=== PATIENT | female | born 1970 | race Caucasian/White ===

== ENCOUNTER 2022-03-11 09:36 | Outpatient (CLI) | payer OTHER, SELFPAY ==
[2022-03-11 10:30] LABS: Creatinine* 0.7 mg/dL (0.5-1.5); Estimated Glomerular Filt Rate 105 ml/min
== END 2022-03-11 09:37 | disposition home or self-care (01) ==
LOC: NFLDREF 09:40
PROVIDERS: PCP Family Medicine; Visit Provider Family Medicine
DX: Z79.899 Other long term (current) drug therapy (principal); Z20.822 Contact with and (suspected) exposure to COVID-19
CPT/HCPCS: 82565

== ENCOUNTER 2022-08-16 09:23 | Emergency (ER) | payer MEDICAID, SELFPAY ==
[2022-08-16] VITALS (9 sets, daily range): BP systolic 114–182; BP diastolic 69–90; PULSE 71–115; RESP 16–20; TEMP 36.4; O2SAT 96–99; BMI 25.5
--- NOTE | 2022-08-16 | CRLHL7_ITS ---
For Patients: As a result of the Century Cures Act, medical imaging exams and procedure reports are released immediately into your electronic medical record. You may view this report before your referring provider. If you have questions, please contact your health care provider. INDICATION: Sudden vision changes. TECHNIQUE: CTA head with contrast bolus tracking and 3D MIP reconstruction. FINDINGS: There is normal opacification of the intracranial vasculature. There is no large vessel occlusion. No aneurysm is identified. IMPRESSION: Unremarkable head CTA. Please note that all CT scans at this facility use dose modulation, iterative reconstruction, and/or weight-based dosing when appropriate to reduce radiation dose to as low as reasonably achievable. Dictated by Cuate Johnson MD @ 08/16/2022 3:16:11 PM (Electronically Signed)
--- NOTE | 2022-08-16 | CRLHL7_ITS ---
For Patients: As a result of the Century Cures Act, medical imaging exams and procedure reports are released immediately into your electronic medical record. You may view this report before your referring provider. If you have questions, please contact your health care provider. INDICATION: Sudden vision changes. TECHNIQUE: CTA neck with contrast bolus tracking and 3D MIP reconstruction. FINDINGS: There is no significant carotid or vertebral artery stenosis or dissection. The soft tissues of the neck are within normal limits. The cervical spine is in normal alignment. IMPRESSION: Unremarkable neck CTA. Please note that all CT scans at this facility use dose modulation, iterative reconstruction, and/or weight-based dosing when appropriate to reduce radiation dose to as low as reasonably achievable. Dictated by Cuate Johnson MD @ 08/16/2022 3:18:21 PM (Electronically Signed)
--- NOTE | 2022-08-16 09:38 | CT_ITS ---
Patient: CORNELIO MAYO Facility:?[facility] Patient ID:?[id number] Site Patient ID:?[id number]. Site :?[id number] Study:?CT-Head STROKE PROTOCOL-08/16/2022 9:59:33 AM Ordering Physician:?UNKNOWN UNKNOWN Final Report: INDICATION: SUDDEN VISUAL CHANGES TECHNIQUE: CT head stroke protocol without contrast. COMPARISON: None. FINDINGS: CSF spaces: Within normal limits for age. Brain parenchyma and extra-axial spaces: The rodriguez-white differentiation is normal. No sign of intracranial hemorrhage, or midline shift. No extra-axial fluid collection. Ventricles are normal in size and configuration. Skull base and calvarium: The visualized paranasal sinuses and mastoid air cells demonstrate no acute or significant findings. The visualized orbits are grossly unremarkable. No skull fractures. IMPRESSION: No evidence of acute intracranial abnormality. Specifically, no evidence of acute intracranial hemorrhage. If there is further clinical concern for acute/subacute ischemia would recommend further evaluation with MRI which would be more sensitive. Please note that all CT scans at this facility use dose modulation, iterative reconstruction, and/or weight-based dosing when appropriate to reduce radiation dose to as low as reasonably achievable. Dictated by Efrain Howard MD @ 08/16/2022 10:05:07 AM ----- ADDENDUM ----- DR Bedolla received report 10:11am Dictated by Efrain Howard MD @ Aug 16 2022 10:14AM Signed by:?Efrain Howard MD @08/16/2022 10:05:07 AM (Electronic Signature)
[2022-08-16 10:02] LABS: Basophils Absolute Auto 0.04 K/uL (0.00-0.30); Basophils Percent Auto 0.7 % (0.0-3.0); Eosinophils Absolute Auto 0.07 K/uL (0.00-0.50); Eosinophils Percent Auto 1.3 % (0.0-7.0); Hematocrit 40.4 % (33.0-51.0); Hemoglobin* 14.3 gm/dL (12.0-16.0); Immature Granulocytes Abs Auto 0.01 K/uL (0.00-0.30); Immature Granulocytes Pct Auto 0.2 %; Lymphocytes Percent Auto 19.1 % (20-44); Mean Corpuscular HGB Conc 35 gm/dL (32-36); Mean Corpuscular Hemoglobin 30 pg (26-34); Mean Corpuscular Volume 84 fL (80-100); Monocytes Percent Auto 9.8 % (0.0-11.0); Neutrophils Percent Auto 68.9 % (42.0-72.0); Platelet Count* 220 K/uL (140-440); RDW Coefficient of Variation % 12.1 % (11.5-15.5); Red Blood Count 4.83 m/uL (4.00-5.20); White Blood Count* 5.51 K/uL (4.50-11.00)
[2022-08-16 10:11] LABS: Slide Review Reflex No
--- NOTE | 2022-08-16 10:28 | ED.NURSE ---
Visual acuity test performed with and without contacts. Without: unable to see anything. With: R: 20/20 L:20/30.
[2022-08-16 10:29] LABS: D Dimer Quantitative* < 0.27 ug/ml (0.00-0.50)
[2022-08-16] MEDS: 0.9 % SODIUM CHLORIDE 1000 ml 1,000 ML IV ×2 (10:30→11:51)
[2022-08-16 10:32] LABS: Chloride* 102 mmol/L (96-114); Potassium* 4.1 mmol/L (3.6-5.1); Sodium* 137 mmol/L (135-149)
[2022-08-16 10:35] LABS: Blood Urea Nitrogen* 14 mg/dL (7-30); Carbon Dioxide* 27 mmol/L (20-32); Creatinine* 0.7 mg/dL (0.5-1.5); Est. Creatinine Clearance* 77.77; Estimated Glomerular Filt Rate 104 ml/min; Glucose* 112 mg/dL (60-115)
[2022-08-16 10:36] LABS: Calcium* 9.3 mg/dL (8.4-10.6)
[2022-08-16 10:37] LABS: Ethanol* < 0.01 % (0.01-0.03); INR 0.93 (0.91-1.10); Prothrombin Time 13.1 Seconds
[2022-08-16 10:38] LABS: Partial Thromboplastin Time* 30 Seconds (23-33)
[2022-08-16 10:40] LABS: C Reactive Protein* < 0.5 mg/dL (0.5-1.0)
--- NOTE | 2022-08-16 10:41 | ED_ITS ---
HPI - Neuro Symptoms/Deficit General Date Seen: 08/16/22 Chief Complaint: Neuro Symptoms/Altered Deficit Stated Complaint: Loss of vision Time Seen by Provider: 08/16/22 09:52 Source: patient and family Mode of arrival: ambulatory Limitations: no limitations History of Present Illness HPI Narrative: Patient is a 52-year-old female who presents here with the right-sided eye issue, she was at work uncommon approximately half an hour ago noticed that she had almost like a shade being pulled down over the lateral part of her right eye she says the medial part is fine but the lateral part is blurry, she does not notice any loss of light dark, but just is not able to focus as well out of her right eye. She denies a headache associated with this any numbness tingling or weakness, no speech issues, she has no problems with walking or balance, there is no nausea vomiting, she has no history of significant headaches, migraines, or other issue she is on no anticoagulants, and did not take anything for this. Onset (ago): minute(s) (30) Timing confirmed by: family member Location: other History of same: No Severity: moderate Relieving factors: none Exacerbating factors: none Context: sudden onset On Anticoagulants: No Treatments Prior to Arrival: none Related Data Home Medications Medication Instructions Recorded Confirmed rosuvastatin 5 mg tablet 5 mg PO DAILY 02/25/22 05/25/22 Allergies Allergy/AdvReac Type Severity Reaction Status Date / Time hydrocodone Allergy Mild Unknown Verified 05/25/22 12:51 Review of Systems Status of ROS: Reports: 10 or more systems reviewed and unremarkable except as noted in History and below PFSH PFS Medical History Contusion of sternum History of essential hypertension Surgical History History of appendectomy (1990) History of bilateral ligation of fallopian tubes (2007) History of pubovaginal sling (2010) S/p bilateral carpal tunnel release (~12/2020) Status post laparoscopic cholecystectomy (2017) Family History Other Adopted person Social History Narrative: Exercise involving walking, 58856 steps daily 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 Head eyes ears nose and throat exam show equal pupils, no scleral icterus, extraocular muscles are normal, no facial droop, speech is normal, trachea normal and midline. Thyroid normal midline palpable not enlarged. Chest shows symmetrical rise bilaterally, normal auscultation with no wheezes, no increased work of breathing, no overt bruising or lesions seen, no tenderness is noted on auscultation. Heart sounds normal with no S3-S4 no murmurs clicks or gallops. Abdomen shows no obvious masses or hepatosplenomegaly, no organomegaly, bowel sounds are normal in all quadrants. No tenderness is noted also in all quadrant s. Upper and lower extremities show normal power, normal range of motion, pulses are normal, sensations normal, fine motor movements are normal, pelvis is stable to rocking. Cervical spine shows normal range of motion, and palpably not tender. Thoracic spine shows normal range of motion, and palpably not tender, lumbar spine shows no tenderness to palpation percussion and is otherwise normal range of motion. Skin shows no rashes, petechiae or eccymosis. Visual acuity is actually pretty good her eyes, please see nurse's note, she has really no vision without her contacts which are currently in. Her fundi appear normal this examiner, within the realm of it is tough to see, Const: Vital Signs, click to edit/add: Vital Signs - 24 hr 08/16/22 09:28 08/16/22 10:11 08/16/22 10:07 Temperature 97.6 F Pulse Rate [Left P ulse Oximeter] Pulse Rate [Left] 115 H 86 Respiratory Rate 20 18 Blood Pressure [Ri ght Upper Arm] 182/89 H 144/80 H 114/80 Pulse Oximetry 96 99 Oxygen Delivery Me thod Room Air Room Air Room Air 08/16/22 10:27 08/16/22 10:30 08/16/22 11:00 Temperature Pulse Rate [Left P ulse Oximeter] 82 77 Pulse Rate [Left] 77 78 Respiratory Rate Blood Pressure [Ri ght Upper Arm] 156/90 H 151/89 H 140/80 H Pulse Oximetry 98 99 Oxygen Delivery Me thod 08/16/22 11:30 08/16/22 11:56 08/16/22 13:54 Temperature Pulse Rate [Left P ulse Oximeter] 76 Pulse Rate [Left] 81 71 Respiratory Rate 16 Blood Pressure [Ri ght Upper Arm] 148/87 H 138/69 Pulse Oximetry 98 97 99 Oxygen Delivery Me thod Room Air Room Air Room Air Documenting provider has reviewed patient's vital signs: yes Course Course Hospital Course: Discussed with the patient and her partner that I think her field cut was most likely from a migraine headache as the MRI and the other testing was all negative. I think would like to her to follow up with primary care to further discussion with this, return here any signs and symptoms of worsening such as weakness in the extremities, recurrent nausea vomiting or worsening headache. Vital Signs Vital signs: Initial Vital Signs Temperature 97.6 F 08/16/22 09:28 Temperature Source Temporal Artery Scan 08/16/22 09:28 Pulse Rate 115 H 08/16/22 09:28 Respiratory Rate 20 08/16/22 09:28 Blood Pressure 182/89 H 08/16/22 09:28 Blood Pressure Mean 120 08/16/22 09:28 Blood Pressure Position Sitting 08/16/22 09:28 Pulse Oximetry 96 08/16/22 09:28 Oxygen Delivery Method 08/16/22 09:28 Vital Signs Temperature 97.6 F 08/16/22 09:28 Pulse Rate 115 H 08/16/22 09:28 Respiratory Rate 20 08/16/22 09:28 Blood Pressure 182/89 H 08/16/22 09:28 Pulse Oximetry 96 08/16/22 09:28 Oxygen Delivery Method 08/16/22 09:28 Temperature 97.6 F 08/16/22 09:28 Pulse Rate 76 08/16/22 13:54 Respiratory Rate 16 08/16/22 13:54 Blood Pressure 138/69 08/16/22 13:54 Pulse Oximetry 99 08/16/22 13:54 Oxygen Delivery Method 08/16/22 13:54 MDM - Neuro Symptoms/Deficit MDM Narrative Medical decision making narrative: During this evaluation I considered multiple diagnosis including stroke, TIA, rind, intrinsic eye issue, and other possibilities. Medical Records Attestation: I reviewed the patient's medical records. Lab Data Attestation: I reviewed the patient's lab results. Labs: Lab Results 08/16/22 08/16/22 08/16/22 Range/Units 09:40 09:40 09:40 WBC 5.51 (4.50-11.00) K/uL RBC 4.83 (4.00-5.20) m/uL Hgb 14.3 (12.0-16.0) gm/dL Hct 40.4 (33.0-51.0) % MCV 84 (80-100) fL MCH 30 (26-34) pg MCHC 35 (32-36) gm/dL RDW Coeff of [place] 12.1 (11.5-15.5) % Plt Count 220 (140-440) K/uL Neut % (Auto) 68.9 (42.0-72.0) % Lymph % (Auto) 19.1 L (20-44) % [place] % (Auto) 9.8 (0.0-11.0) % Eos % (Auto) 1.3 (0.0-7.0) % Baso % (Auto) 0.7 (0.0-3.0) % Neut # (Auto) 3.80 (1.7-7.0) K/uL Lymph # (Auto) 1.10 (0.90-2.90) K/uL [place] # (Auto) 0.50 (0.00-0.90) K/UL Eos # (Auto) 0.07 (0.00-0.50) K/uL Baso # (Auto) 0.04 (0.00-0.30) K/uL INR (0.91-1.10) APTT (23-33) Seconds D-Dimer Quant (PE/DVT) < 0.27 (0.00-0.50) ug/ml Sodium 137 (135-149) mmol/L Potassium 4.1 (3.6-5.1) mmol/L Chloride 102 (96-114) mmol/L Carbon Dioxide 27 (20-32) mmol/L BUN 14 (7-30) mg/dL Creatinine 0.7 (0.5-1.5) mg/dL Estimated Creat Clear 77.77 Estimated GFR 104 ml/min Glucose 112 (60-115) mg/dL Calcium 9.3 (8.4-10.6) mg/dL C-Reactive Protein (0.5-1.0) mg/dL Ethyl Alcohol < 0.01 L (0.01-0.03) % SARS-CoV-2 (PCR) (Negative) Influenza Type A (PCR) (Negative) Influenza Type B (PCR) (Negative) RSV (PCR) (Negative) 08/16/22 08/16/22 08/16/22 Range/Units 09:40 09:40 09:53 WBC (4.50-11.00) K/uL RBC (4.00-5.20) m/uL Hgb (12.0-16.0) gm/dL Hct (33.0-51.0) % MCV (80-100) fL MCH (26-34) pg MCHC (32-36) gm/dL RDW Coeff of [place] (11.5-15.5) % Plt Count (140-440) K/uL Neut % (Auto) (42.0-72.0) % Lymph % (Auto) (20-44) % [place] % (Auto) (0.0-11.0) % Eos % (Auto) (0.0-7.0) % Baso % (Auto) (0.0-3.0) % Neut # (Auto) (1.7-7.0) K/uL Lymph # (Auto) (0.90-2.90) K/uL [place] # (Auto) (0.00-0.90) K/UL Eos # (Auto) (0.00-0.50) K/uL Baso # (Auto) (0.00-0.30) K/uL INR 0.93 (0.91-1.10) APTT 30 (23-33) Seconds D-Dimer Quant (PE/DVT) (0.00-0.50) ug/ml Sodium (135-149) mmol/L Potassium (3.6-5.1) mmol/L Chloride (96-114) mmol/L Carbon Dioxide (20-32) mmol/L BUN (7-30) mg/dL Creatinine (0.5-1.5) mg/dL Estimated Creat Clear Estimated GFR ml/min Glucose (60-115) mg/dL Calcium (8.4-10.6) mg/dL C-Reactive Protein < 0.5 L (0.5-1.0) mg/dL Ethyl Alcohol (0.01-0.03) % SARS-CoV-2 (PCR) Negative SARS-CoV-2 (Negative) Influenza Type A (PCR) Negative PCR FLU A (Negative) Influenza Type B (PCR) Negative PCR FLU B (Negative) RSV (PCR) Negative PCR RSV (Negative) Imaging Data MRI - head: Attestation: I have reviewed the pertinent imaging results. My impression: Head CT and head CTA and neck CT are all normal, follow-up MRI did not show any acute abnormalities, read by Radiology in agreement. This is very reassuring more likely cause of her discomfort, today was right-sided migraine headache. Discharge Plan Discharge Clinical Impression: Headache, migraine, Visual field cut Patient Disposition: Home w/ Parent or Adult Condition: Stable Instructions: Migraine Headache (ED), Visual Floaters (ED) Additional Instructions: Home, rest, follow-up with optometry within the next day or 2 just to ensure that there is nothing going on with your retina, I suspect that at this is all due to a him migraine, but want to be 100% certain. Ibuprofen 800 mg also, follow-up with primary care for help with migraines. Return here if increasing signs or symptoms or any weakness or any other atypical symptoms. Prescriptions: No Action rosuvastatin 5 mg tablet 5 mg PO DAILY Follow Up/Referrals: Claudia Cruz MD [Primary Care Provider] - Stand Alone Forms: [employer] Info Instructions
[2022-08-16 10:54] LABS: PCR FLU A Negative PCR FLU A (Negative); PCR FLU B Negative PCR FLU B (Negative); PCR RSV Negative PCR RSV (Negative)
[2022-08-16] MEDS: ASPIRIN 81 MG TAB.CHEW 324 MG PO (10:55)
--- NOTE | 2022-08-16 10:55 | PC.NURSE ---
Pain in front of head and to the side after fluids administered. MD notified. Aspirin 324mg given.
[2022-08-16 11:00] LABS: SARS PCR* Negative SARS-CoV-2 (Negative)
--- NOTE | 2022-08-16 11:37 | CRLHL7_ITS ---
For Patients: As a result of the Century Cures Act, medical imaging exams and procedure reports are released immediately into your electronic medical record. You may view this report before your referring provider. If you have questions, please contact your health care provider. INDICATION: Right-sided field cut. TECHNIQUE: Multiplanar multisequence noncontrast MR images acquired through the brain. COMPARISON: CT brain 08/16/2022. FINDINGS: The ventricles and sulci are within normal limits for patient age. No mass effect or midline shift. Punctate FLAIR hyperintensity within the left frontal white matter (series 4, image 22), nonspecific. No diffusion restriction to suggest acute infarction. No intracranial hemorrhage or pathologic extra-axial fluid collection. The major arterial flow voids of the skullbase are preserved. The globes are symmetric. Mild paranasal sinus mucosal thickening. Small left mastoid effusion. IMPRESSION: 1. No acute infarction, mass effect, or intracranial hemorrhage. 2. Punctate FLAIR hyperintensity within the left frontal white matter is nonspecific, though may represent sequelae of minimal chronic microvascular ischemic change or migraine headaches. Dictated by Jayro Parekh MD @ 08/16/2022 1:37:25 PM (Electronically Signed)
[2022-08-16] MEDS: diphenhydrAMINE 50 MG/ML inj 25 MG IVP (11:50)
[2022-08-16] MEDS: METOCLOPRAMIDE HCL 10 MG in 0.9 % SODIUM CHLORIDE 100 ml 100 ML 306 MG IVPB (11:51)
[2022-08-16] MEDS: KETOROLAC 30 MG/ML inj IVP (12:13)
--- NOTE | 2022-08-16 12:38 | ED.NURSE ---
patient was up to the bathroom and then went to MRI via .
--- NOTE | 2022-08-16 13:58 | PC.NURSE ---
Patient was moved out into the lobby. okay with her to be off monitor and wait for instructions in the lobby. IV taken out and catheter intact.
== END 2022-08-16 14:07 | disposition home or self-care (01) ==
PROVIDERS: Emergency Provider Family Medicine; PCP Family Medicine
DX: G43.909 Migraine, unspecified, not intractable, without status migrainosus (principal); H53.40 Unspecified visual field defects
CPT/HCPCS: 36415; 70450; 70496; 70498; 70551; 80048; 82077; 85025; 85379; 85610; 85730; 86140; 87502; 87634; 87635; 96365; 96375; 99284; 99285; A9270; J1200; J1885; J2765; J7030; Q9967

== ENCOUNTER 2022-12-28 13:05 | Emergency (ER) | payer MEDICAID, SELFPAY ==
--- NOTE | 2015-12-29 13:06 | ED_ITS ---
HISTORY OF PRESENT ILLNESS The patient is a 52-year-old female coming in with anterolateral right chest wall pain. ?She notes on Monday she initially injured it when she was leaning over the bed of her 's pickup truck to retrieve something. ?She felt a popping sensation. ?It was sore then. ?She has been prepping her backyard for a graduation green party that is going to happen there. ?Today, she was mowing, moved some chairs, then leaned over to move a bag of mulch and had severe pain. ?She is having pain with any breathing, any movement, states she does feel short of breath. ?Denies any underlying illness or cough or cold symptoms. ?Has no personal history of cancer. ?She is adopted and does not know any family history. ?She has been using Advil and Tylenol. ?On questioning, she has significant reaction to narcotics. ?Hydrocodone has made her throw up. ?She does use oxycodone but has to use nausea medications with this. ?Only other medication is rosuvastatin. ?Denies any chronic pain issues. REVIEW OF SYSTEMS Unless noted above, negative for 6-point review of systems. ALLERGIES No known drug allergies but does have intolerance to narcotics due to nausea and vomiting. BODY AFTER ALLERGIES CURRENT MEDICATIONS Rosuvastatin, has been doing Tylenol and ibuprofen currently for active acute pain. PAST HISTORY Denies any chronic medical issues outside of hyperlipidemia. ?Does state that she has had an appendectomy and cholecystectomy. SOCIAL HISTORY Habits: ?Denies any nicotine. PHYSICAL EXAMINATION CONSTITUTIONAL: ?Patient is alert, interactive, no apparent distress. ?She is tearful, seems to be in pain with any movement. ?She is hanging onto her right anterolateral chest wall. ? VITAL SIGNS: ?She is 100% on room air on arrival, no hypoxia noted, other vitals reviewed and stable. ? HEENT: ?Crying some, but otherwise sclerae are clear, conjugate gaze, no scleral icterus. ?Symmetrical facial function, able to speak in complete sentences, no hoarseness of voice. NECK: ?Supple, no crepitus, no masses or cervical adenopathy. ? CHEST: ?Has pain with movement when I ask her to sit up, breath sounds are symmetric, equal, diminished due to poor inspiratory effort. ?No crackles or wheezing noted. ?She has the rib marker on the right anterolateral chest wall where the pain is. ?She is tender when I palpate, but there is no overlying rash, no ecchymosis, no crepitus, no step-off. CV: ?Regular rate and rhythm. ?No murmur, normal S1, S2, no S3 or S4. ABDOMEN: ?Soft, nontender, nondistended, feel no organomegaly. EMERGENCY ROOM COURSE The patient had chest x-ray with right rib views obtained. ?Discussed with her differential is occult rib fracture versus musculoskeletal issues. ?Will await reading of this. ?Unfortunately, at this time there is computer system issues and I cannot visualize her x-rays. ? Please leave this open for further dictation. DICTATION ENDS HERE HPI - General Adult General Chief complaint: Rib Pain Stated complaint: R rib pain Time Seen by Provider: 12/28/22 13:07 Related Data Home Medications Medication Instructions Recorded Confirmed rosuvastatin 5 mg tablet 5 mg PO DAILY 02/25/22 12/28/22 Previous Rx's Medication Instructions Recorded eletriptan 20 mg tablet (Relpax) 20 mg PO Q2H PRN migraine headache 10/06/22 #10 tabs ibuprofen 800 mg tablet 800 mg PO Q8H PRN pain #30 tabs 10/06/22 cyclobenzaprine 10 mg tablet 10 mg PO TID PRN muscle spasm #21 12/28/22 tabs ondansetron 4 mg disintegrating 4 mg PO Q8H PRN nausea and 12/28/22 tablet vomiting #10 tabs oxycodone 5 mg tablet 5 mg PO TID PRN pain #10 tabs 12/28/22 oxycodone 5 mg tablet 5 mg PO TID PRN pain #10 tabs 12/28/22 Allergies Allergy/AdvReac Type Severity Reaction Status Date / Time hydrocodone Allergy Mild Vomiting Verified 12/28/22 14:21 PFSH PFS Medical History History of essential hypertension Migraine with aura Surgical History History of appendectomy (1990) History of bilateral ligation of fallopian tubes (2007) History of pubovaginal sling (2010) S/p bilateral carpal tunnel release (~12/2020) Status post laparoscopic cholecystectomy (2018) Family History Adopted person Social History Narrative: Exercise involving walking, 7[address]72 steps daily 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 , [employer]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, 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 Non-smoker, quit age 25, 5 pack years Social drinker, 3-4/month Smoking Status: Former smoker Do you use any of these nicotine containing products: None Second hand tobacco smoke exposure: No How often do you have a drink containing alcohol: 2-4 times a month How many standard drinks containing alcohol do you have on a typical day: 1 or 2 How often do you have six or more drinks on one occasion: Never AUDIT-C Alcohol total score: 2 Non-prescribed substance use: denies use Little interest or pleasure in doing things: not at all Feeling down, depressed, or hopeless: not at all service: No Exam Const: Vital Signs, click to edit/add: Vital Signs - 24 hr 12/28/22 13:10 Pulse Rate [Pulse Oximeter] 97 Respiratory Rate 20 Blood Pressure [Ri ght Upper Arm] 151/95 H Pulse Oximetry 100 Oxygen Delivery Me thod Room Air Course Reevaluation(s) Time of Reevaluation #1: 15:01 Reevaluation #1: Have reviewed with her the negative findings on chest x-ray. She still understands that there can be occult rib fractures that may not be seen until healing with a callus can be seen on re-x-ray. Nonetheless, treatment is still the same with pain management, relative rest. We discussed using some oxycodone with Zofran on top of the Tylenol ibuprofen. I will write for a muscle relaxant as well. She works the next 2 days and is in significant pain, am happy to give her a note off for the next to days to rest. Did offer Toradol IM prior to discharge which she will take. Vital Signs Vital signs: Initial Vital Signs Pulse Rate 97 12/28/22 13:10 Pulse Rhythm Regular 12/28/22 13:10 Pulse Strength 3+ Normal 12/28/22 13:10 Respiratory Rate 20 12/28/22 13:10 Blood Pressure 151/95 H 12/28/22 13:10 Blood Pressure Mean 113 H 12/28/22 13:10 Blood Pressure Position Sitting 12/28/22 13:10 Pulse Oximetry 100 12/28/22 13:10 Oxygen Delivery Method Room Air 12/28/22 13:10 Vital Signs Pulse Rate 97 12/28/22 13:10 Respiratory Rate 20 12/28/22 13:10 Blood Pressure 151/95 H 12/28/22 13:10 Pulse Oximetry 100 12/28/22 13:10 Oxygen Delivery Method Room Air 12/28/22 13:10 Pulse Rate 97 12/28/22 13:10 Respiratory Rate 20 12/28/22 13:10 Blood Pressure 151/95 H 12/28/22 13:10 Pulse Oximetry 100 12/28/22 13:10 Oxygen Delivery Method Room Air 12/28/22 13:10 Medical Decision Making Imaging Data Chest x-ray: Attestation: I have reviewed the pertinent imaging results. Radiologist's impression: Patient: CORNELIO MAYO Facility:?[facility] Patient ID:?[id number] Site Patient ID:?[id number] Site :?1970 Study:?XRay Chest Right RIBS 3 VIEWS-12/28/2022 1:49:23 PM Ordering Physician:Raul Final Report: HISTORY: Right rib pain. TECHNIQUE: Frontal view the chest and 2 views of the right ribs. COMPARISON: None. FINDINGS: No airspace consolidation. No pleural effusion or pneumothorax. Pulmonary vasculature and cardiomediastinal silhouette are unremarkable. No right rib fractures. Surgical clips in the right upper quadrant of the abdomen. IMPRESSION: No right rib fractures. No cardiopulmonary abnormality. Dictated by Wallace Travis MD @ 12/28/2022 2:36:43 PM (Electronic Signature) Critical Care Time Critical Care Time Critical Care Time: No Discharge Plan Discharge Clinical Impression: Right-sided chest wall pain Patient Disposition: Home, Self-Care Condition: Stable Instructions: Chest Wall Pain (ED) Additional Instructions: Use Tylenol 1000 mg 3 times a day, supplement with ibuprofen 600mg up to 4 times a day with food as needed. Have written for muscle relaxant to be used per prescription, can be sedating in you cannot drive or operate machinery on this. Likewise, have written for a few tablets of oxycodone for severe pain, no operation of machinery or driving while on this. Oxycodone can be constipating as well as cause nausea vomiting. Have written for Zofran to take with the oxycodone. If you find you are getting constipated, can use MiraLax and or senna per package instructions. If you develop increasing pain, fevers with this or difficulty breathing or shortness of breath that is worsening, do need to be re-evaluated. Need to limit lifting in activities as mediated by your pain level. Activity Level: Activity as Tolerated Prescriptions: New oxycodone 5 mg tablet 5 mg PO TID PRN (Reason: pain) Qty: 10 0RF ondansetron 4 mg tablet,disintegrating 4 mg PO Q8H PRN (Reason: nausea and vomiting) Qty: 10 0RF cyclobenzaprine 10 mg tablet 10 mg PO TID PRN (Reason: muscle spasm) Qty: 21 0RF oxycodone 5 mg tablet 5 mg PO TID PRN (Reason: pain) Qty: 10 0RF No Action rosuvastatin 5 mg tablet 5 mg PO DAILY eletriptan [Relpax] 20 mg tablet 20 mg PO Q2H PRN (Reason: migraine headache) Qty: 10 0RF Rx Instructions: do not exceed 2 doses per 24 hrs ibuprofen 800 mg tablet 800 mg PO Q8H PRN (Reason: pain) Qty: 30 0RF Rx Instructions: 1 tab po x1 as needed for migraine Follow Up/Referrals: Claudia Cruz MD [Primary Care Provider] - Stand Alone Forms: [employer] Info Instructions Documented By: Yecenia Tipton M.D. Signed By:
--- NOTE | 2022-12-28 | XR_ITS ---
Patient: CORNELIO MAYO Facility:?[facility] Patient ID:?[id number] Site Patient ID:?[id number] Site :?1970 Study:?XRay-Chest Right RIBS 3 VIEWS-12/28/2022 1:49:23 PM Ordering Physician:Raul Final Report: HISTORY: Right rib pain. TECHNIQUE: Frontal view the chest and 2 views of the right ribs. COMPARISON: None. FINDINGS: No airspace consolidation. No pleural effusion or pneumothorax. Pulmonary vasculature and cardiomediastinal silhouette are unremarkable. No right rib fractures. Surgical clips in the right upper quadrant of the abdomen. IMPRESSION: No right rib fractures. No cardiopulmonary abnormality. Dictated by Wallace Travis MD @ 12/28/2022 2:36:43 PM Signed by:?Wallace Travis MD @12/28/2022 2:36:43 PM (Electronic Signature)
[2022-12-28 13:10] VITALS: BP 151/95; PULSE 97; RESP 20; O2SAT 100; BMI 24.0
--- NOTE | 2022-12-28 14:23 | ED.GENADULT ---
HPI - General Adult General Chief complaint: Rib Pain Stated complaint: R rib pain Time Seen by Provider: 12/28/22 13:07 Related Data Home Medications Medication Instructions Recorded Confirmed rosuvastatin 5 mg tablet 5 mg PO DAILY 02/25/22 12/28/22 Previous Rx's Medication Instructions Recorded eletriptan 20 mg tablet (Relpax) 20 mg PO Q2H PRN migraine headache 10/06/22 #10 tabs ibuprofen 800 mg tablet 800 mg PO Q8H PRN pain #30 tabs 10/06/22 cyclobenzaprine 10 mg tablet 10 mg PO TID PRN muscle spasm #21 12/28/22 tabs ondansetron 4 mg disintegrating 4 mg PO Q8H PRN nausea and 12/28/22 tablet vomiting #10 tabs oxycodone 5 mg tablet 5 mg PO TID PRN pain #10 tabs 12/28/22 oxycodone 5 mg tablet 5 mg PO TID PRN pain #10 tabs 12/28/22 Allergies Allergy/AdvReac Type Severity Reaction Status Date / Time hydrocodone Allergy Mild Vomiting Verified 12/28/22 14:21 PFSH PFSH Medical History History of essential hypertension Migraine with aura Surgical History History of appendectomy (1990) History of bilateral ligation of fallopian tubes (2007) History of pubovaginal sling (2010) S/p bilateral carpal tunnel release (~12/2020) Status post laparoscopic cholecystectomy (2017) Family History Adopted person Social History Narrative: Exercise involving walking, 9[address]16 steps daily 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 , [employer]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, 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 Non-smoker, quit age 25, 5 pack years Social drinker, 3-4/month Smoking Status: Former smoker Do you use any of these nicotine containing products: None Second hand tobacco smoke exposure: No How often do you have a drink containing alcohol: 2-4 times a month How many standard drinks containing alcohol do you have on a typical day: 1 or 2 How often do you have six or more drinks on one occasion: Never AUDIT-C Alcohol total score: 2 Non-prescribed substance use: denies use Little interest or pleasure in doing things: not at all Feeling down, depressed, or hopeless: not at all service: No Exam Const: Vital Signs, click to edit/add: Vital Signs - 24 hr 12/28/22 13:10 Pulse Rate [Pulse Oximeter] 97 Respiratory Rate 20 Blood Pressure [Ri ght Upper Arm] 151/95 H Pulse Oximetry 100 Oxygen Delivery Me thod Room Air Course Reevaluation(s) Time of Reevaluation #1: 15:01 Reevaluation #1: Have reviewed with her the negative findings on chest x-ray. She still understands that there can be occult rib fractures that may not be seen until healing with a callus can be seen on re-x-ray. Nonetheless, treatment is still the same with pain management, relative rest. We discussed using some oxycodone with Christian on top of the Tylenol ibuprofen. I will write for a muscle relaxant as well. She works the next 2 days and is in significant pain, am happy to give her a note off for the next to days to rest. Did offer Toradol IM prior to discharge which she will take. Vital Signs Vital signs: Initial Vital Signs Pulse Rate 97 12/28/22 13:10 Pulse Rhythm Regular 12/28/22 13:10 Pulse Strength 3+ Normal 12/28/22 13:10 Respiratory Rate 20 12/28/22 13:10 Blood Pressure 151/95 H 12/28/22 13:10 Blood Pressure Mean 113 H 12/28/22 13:10 Blood Pressure Position Sitting 12/28/22 13:10 Pulse Oximetry 100 12/28/22 13:10 Oxygen Delivery Method Room Air 12/28/22 13:10 Vital Signs Pulse Rate 97 12/28/22 13:10 Respiratory Rate 20 12/28/22 13:10 Blood Pressure 151/95 H 12/28/22 13:10 Pulse Oximetry 100 12/28/22 13:10 Oxygen Delivery Method Room Air 12/28/22 13:10 Pulse Rate 97 12/28/22 13:10 Respiratory Rate 20 12/28/22 13:10 Blood Pressure 151/95 H 12/28/22 13:10 Pulse Oximetry 100 12/28/22 13:10 Oxygen Delivery Method Room Air 12/28/22 13:10 Medical Decision Making Imaging Data Chest x-ray: Attestation: I have reviewed the pertinent imaging results. Radiologist's impression: Patient: CORNELIO MAYO Facility:?[facility] Patient ID:?[id number] Site Patient ID:?[id number] Site :?1970 Study:?XRay Chest Right RIBS 3 VIEWS-12/28/2022 1:49:23 PM Ordering Physician:Raul Final Report: HISTORY: Right rib pain. TECHNIQUE: Frontal view the chest and 2 views of the right ribs. COMPARISON: None. FINDINGS: No airspace consolidation. No pleural effusion or pneumothorax. Pulmonary vasculature and cardiomediastinal silhouette are unremarkable. No right rib fractures. Surgical clips in the right upper quadrant of the abdomen. IMPRESSION: No right rib fractures. No cardiopulmonary abnormality. Dictated by Wallace Travis MD @ 12/28/2022 2:36:43 PM (Electronic Signature) Critical Care Time Critical Care Time Critical Care Time: No Discharge Plan Discharge Clinical Impression: Right-sided chest wall pain Patient Disposition: Home, Self-Care Condition: Stable Instructions: Chest Wall Pain (ED) Additional Instructions: Use Tylenol 1000 mg 3 times a day, supplement with ibuprofen 600mg up to 4 times a day with food as needed. Have written for muscle relaxant to be used per prescription, can be sedating in you cannot drive or operate machinery on this. Likewise, have written for a few tablets of oxycodone for severe pain, no operation of machinery or driving while on this. Oxycodone can be constipating as well as cause nausea vomiting. Have written for Zofran to take with the oxycodone. If you find you are getting constipated, can use MiraLax and or senna per package instructions. If you develop increasing pain, fevers with this or difficulty breathing or shortness of breath that is worsening, do need to be re-evaluated. Need to limit lifting in activities as mediated by your pain level. Activity Level: Activity as Tolerated Prescriptions: New oxycodone 5 mg tablet 5 mg PO TID PRN (Reason: pain) Qty: 10 0RF ondansetron 4 mg tablet,disintegrating 4 mg PO Q8H PRN (Reason: nausea and vomiting) Qty: 10 0RF cyclobenzaprine 10 mg tablet 10 mg PO TID PRN (Reason: muscle spasm) Qty: 21 0RF oxycodone 5 mg tablet 5 mg PO TID PRN (Reason: pain) Qty: 10 0RF No Action rosuvastatin 5 mg tablet 5 mg PO DAILY eletriptan [Relpax] 20 mg tablet 20 mg PO Q2H PRN (Reason: migraine headache) Qty: 10 0RF Rx Instructions: do not exceed 2 doses per 24 hrs ibuprofen 800 mg tablet 800 mg PO Q8H PRN (Reason: pain) Qty: 30 0RF Rx Instructions: 1 tab po x1 as needed for migraine Follow Up/Referrals: Claudia Cruz MD [Primary Care Provider] - Stand Alone Forms: [facility] Info Instructions
[2022-12-28] MEDS: KETOROLAC 30 MG/ML inj IM (15:11)
--- NOTE | 2022-12-28 15:24 | ED.NURSE ---
Pt given 30mg Toradol in RIGHT deltoid IM as ordered for pain.
== END 2022-12-28 15:20 | disposition home or self-care (01) ==
PROVIDERS: Emergency Provider Family Medicine; PCP Family Medicine
DX: R07.89 Other chest pain (principal)
CPT/HCPCS: 71101; 96372; 99284; J1885

== ENCOUNTER 2023-04-27 09:46 | Outpatient (CLI) | payer MEDICAID, SELFPAY | END 2023-04-27 09:47 | disposition home or self-care (01) | PROVIDERS: PCP Family Medicine; Visit Provider Family Medicine | DX: R42 Dizziness and giddiness (principal); E78.5 Hyperlipidemia, unspecified; R53.83 Other fatigue; R19.7 Diarrhea, unspecified; R25.2 Cramp and spasm | CPT/HCPCS: 80053; 83735; 84443 ==

== ENCOUNTER 2023-08-21 06:16 | Day surgery (SDC) | payer MEDICAID, SELFPAY ==
[2023-08-21] MEDS: ETHYL CHLORIDE 1 APPLICATION 1 APPLIC TOPICAL (06:22)
[2023-08-21 06:23] VITALS: BP 150/84; PULSE 70; RESP 16; TEMP 36.9; O2SAT 98; O2SAT 99; BMI 24.6
[2023-08-21] MEDS: lidocaine HCL 2 % MULTIDOSE 20 ML VIAL INJECTION (06:55)
[2023-08-21] MEDS: BUPIVACAINE 0.5% 30 ML INJECTION (06:55)
[2023-08-21 07:16] VITALS: BP 145/71; PULSE 68; RESP 16; O2SAT 99
[2023-08-21 07:20] VITALS: BP 153/81; PULSE 71; RESP 16; O2SAT 97
[2023-08-21 07:25] VITALS: BP 147/78; PULSE 64; RESP 16; O2SAT 100
[2023-08-21 07:30] VITALS: BP 144/79; PULSE 62; RESP 16; O2SAT 98
--- NOTE | 2023-08-21 07:31 | PM.ORPRC ---
Procedure Note Date of procedure: 08/21/23 Procedure: PREOPERATIVE DIAGNOSIS: 1. Left thumb flexor tenosynovitis - trigger thumb POSTOPERATIVE DIAGNOSIS:1. Left thumb flexor tenosynovitis - trigger thumb PROCEDURE:1. Left thumb flexor tendon sheath open release (A1 rosalinda) SURGEON: Boris Morin MD. DIRECTOR OF FIRST IMPRESSIONS: [HOLLEY Cuellar] ANESTHESIA: Local anesthetic [4ml] via 50:50 mixture of [1]% Lidocaine [with epi] and [0.5]% marcaine [plain] EBL: [ 2ml ] IMPLANTS: None TOURNIQUET: [None] COMPLICATIONS: None evident INDICATIONS: The patient is a pleasant [53-year-old male female] who has experienced left thumb catching/triggering for number of months. It has progressively gotten worse. Given the failure of nonoperative management, and how this affects daily life, surgery was recommended. DESCRIPTION OF PROCEDURE: Following a thorough discussion of risks, benefits, and alternatives consent was obtained and the operative digit(s) was marked. The patient was brought to the operating room and placed supine on the operating table. Local anesthesia induction was undertaken in preop holding. No antibiotics were administered as this was planned to be a local case only. Proper time-out was performed identifying proper patient, site, and procedure. The operative extremity was prepped and draped in the appropriate sterile fashion using ChloraPrep. An incision was made on the palmar surface of the hand overlying the MCP joint region of the appropriate digit(s) respecting the palmar creases being cautious not to cross these perpendicularly. Sharp incision through the skin, and blunt dissection through subcutaneous tissue allowing protection of crossing neurologic structures. The A1 rosalinda was visualized directly. It was incised sharply with a 15 blade. It was released completely from its distal to proximal extent under direct visualization. The tendon was inspected and found to be mildly striated consistent with some friction. Otherwise, it was intact. The tendon was removed out of the wound, and further inspected. The patient was asked to manually flex and extend the digits and showed no further catching. The catching which was visualized after tourniquet inflation, was no longer evident with reproduction of a manual fist and relaxation. Closure was performed with 4-O nylon in interrupted fashion. Soft dressings were applied, and the patient was transferred to the recovery room in stable condition. PLAN: 1. Encourage elevation of the operative extremity. 2. Range of motion and icing of the fingers and hand/wrist as tolerated/needed. 3. Ibuprofen/acetaminophen and/or oxycodone as needed for pain control. 4. Follow up with PA visit in 12-16 days for wound check and suture removal.
[2023-08-21] MEDS: NEOMYCIN/BACITRACIN/POLYMYXIN B 1 APPLIC TOPICAL (07:35)
[2023-08-21 07:40] VITALS: BP 148/95; PULSE 74; RESP 16; TEMP 36.8; O2SAT 100
== END 2023-08-21 07:51 | disposition home or self-care (01) ==
PROVIDERS: PCP Family Medicine; Visit Provider Orthopaedic Surgery Sports Medicine
PROC: (CPT 26055; principal; 2023-08-21 07:15)
DX: M65.312 Trigger thumb, left thumb (principal); M65.842 Other synovitis and tenosynovitis, left hand
CPT/HCPCS: 26055; J0665

== ENCOUNTER 2023-09-22 06:50 | Emergency (ER) | payer MEDICAID, SELFPAY ==
[2023-09-22 06:55] VITALS: BP 181/99; PULSE 115; RESP 20; TEMP 36.7; O2SAT 99; BMI 24.8
--- NOTE | 2023-09-22 07:07 | ED.GENADULT ---
HPI - General Adult General Chief complaint: Epistaxis/Nosebleed Stated complaint: Nose bleed 1 hour Time Seen by Provider: 09/22/23 06:57 Source: patient Mode of arrival: ambulatory Limitations: no limitations History of Present Illness HPI narrative: 53-year-old female presents the emergency department with a 1 hour history of nose bleed from the left nostril. No trauma or injury. Does not use anticoagulants. No headache or fever. Has not been using NSAIDs or aspirin. No history DVT or PE. Feels little nauseated but no other systemic symptoms. Has not tried applying pressure but rather just blunting at the nose, did unfortunately has not stopped bleeding. She does not work and a very cold or dry environment, no prior history of significant nosebleeds. Did not try any other interventions prior to coming to ED. Past medical history notable for migraines, no long-term medicines. Allergy to hydrocodone which only caused vomiting. ROS notable for the HEENT symptoms as above only. Negative for generalized, hematologic, skin and GI changes. Related Data Home Medications Medication Instructions Recorded Confirmed rosuvastatin 5 mg tablet 5 mg PO DAILY 02/25/22 09/22/23 Previous Rx's Medication Instructions Recorded eletriptan 20 mg tablet (Relpax) 20 mg PO Q2H PRN migraine headache 10/06/22 #10 tabs Allergies Allergy/AdvReac Type Severity Reaction Status Date / Time hydrocodone Allergy Mild Vomiting Verified 09/22/23 06:57 [facility] Medical History Plantar fasciitis of right foot ?M72.2 - Plantar fascial fibromatosis (ICD-10) Migraine with aura ?G43.109 - Migraine with aura, not intractable, without status migrainosus (ICD-10) History of essential hypertension ?Z86.79 - Personal history of other diseases of the circulatory system (ICD-10) Surgical History Status post trigger finger release (08/21/23) ?Z98.890 - Other specified postprocedural states (ICD-10) Trigger finger, right middle finger (09/01/21) ?M65.331 - Trigger finger, right middle finger (ICD-10) S/p bilateral carpal tunnel release (2020) ?Z98.890 - Other specified postprocedural states (ICD-10) Status post laparoscopic cholecystectomy (2017) ?Z90.49 - Acquired absence of other specified parts of digestive tract (ICD-10) History of pubovaginal sling (2010) ?Z96.0 - Presence of urogenital implants (ICD-10) History of bilateral ligation of fallopian tubes (2007) ?Z98.51 - Tubal ligation status (ICD-10) History of appendectomy (1990) ?Z90.49 - Acquired absence of other specified parts of digestive tract (ICD-10) Family History Other Adopted person Social History Narrative: Exercise involving walking, 55554 steps daily 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 , [employer]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, 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 Non-smoker, quit age 25, 5 pack years Social drinker, 3-4/month Smoking Status: Former smoker What tobacco products do you use: cigarettes Smoking quit date/years: >15 years ago Do you use any of these nicotine containing products: None Second hand tobacco smoke exposure: No How often do you have a drink containing alcohol: 2-4 times a month How many standard drinks containing alcohol do you have on a typical day: 1 or 2 How often do you have six or more drinks on one occasion: Never AUDIT-C Alcohol total score: 2 Non-prescribed substance use: denies use Little interest or pleasure in doing things: not at all Feeling down, depressed, or hopeless: not at all service: No Exam Const: Vital Signs, click to edit/add: Vital Signs - 24 hr 09/22/23 06:55 Temperature 98.0 F Pulse Rate [Right Pulse Oximeter] 115 H Respiratory Rate 20 Blood Pressure [Ri ght Upper Arm] 181/99 H Pulse Oximetry 99 Oxygen Delivery Me thod Room Air Documenting provider has reviewed patient's vital signs: yes Common normals: no apparent distress General appearance: cooperative, comfortable and well kempt Other: Appears well-nourished, well-hydrated, no intoxication. HENMT: Common normals: normocephalic, head/scalp atraumatic and external nose normal Head and scalp: normocephalic and atraumatic Face and sinus: normal facial exam Nose: external nose normal, nares normal and no nasal polyps Mouth: oral and palatal mucosa normal Throat: posterior oropharynx normal Other: Right nostril, nasal mucosa and septum completely normal. Left side with small oozing at anterior plexus, nasal clamp applied. Eye: Common normals: conjunctivae normal General eye: normal appearance of both eyes Conjunctiva: conjunctiva(e) normal Neck & C-Spine: General: normal visual inspection Resp: Common normals: normal respiratory effort Effort & inspection: able to speak in complete sentences Cardio: Common normals: regular rate, regular rhythm, S1 normal heart sound, S2 normal heart sound and no murmurs Rate: regular rate Rhythm: regular rhythm Heart sounds: S1 normal and S2 normal Psych: Appearance: well kempt Attitude: engaged Activity/motor behavior: appropriate eye contact Other: Mildly anxious but appropriate judgment, reasoning, insight and behavior. Skin: Common normals: no rashes or lesions noted General skin exam: no rashes or lesions noted Course Course ED Course: Focal area of bleeding, did not improve with clamping. Discussed options. She would like to try nasal cautery. She is a good candidate for this since the bleed area is small and she does not have additional risk factors for failure. Absolutely no signs of a posterior bleed or septal trauma. Procedure: Nasal cautery. Benzocaine spray to left nostril x1 with good anesthesia. A 6 mm area of the mid anterior nasal septum was cauterized with 1 pass of silver nitrate with good hemostasis. Re-examined 2 minutes later with good hemostasis again. Will re-evaluate in 10 minutes. Well tolerated with no signs of complications. Reevaluation(s) Time of Reevaluation #1: 07:35 Reevaluation #1: Re-evaluated, no signs of repeat bleeding after 10 minutes. Patient sat up, gently dad, gargle been cleaned out her mouth, walk around the exam room a bit with no further signs of bleeding. Feeling well. Precautions discussed, alarm symptoms reviewed. She is planning to stay home from work today which is reasonable. See discharge instructions for specific care. Given nasal clamp for use in case of repeat bleed, management discussed. Follow-up with primary care provider or ear nose and throat if bleeding persists. Vital Signs Vital signs: Initial Vital Signs Temperature 98.0 F 09/22/23 06:55 Temperature Source Temporal Artery Scan 09/22/23 06:55 Pulse Rate 115 H 09/22/23 06:55 Respiratory Rate 20 09/22/23 06:55 Blood Pressure 181/99 H 09/22/23 06:55 Blood Pressure Mean 126 H 09/22/23 06:55 Blood Pressure Position Sitting 09/22/23 06:55 Pulse Oximetry 99 09/22/23 06:55 Oxygen Delivery Method Room Air 09/22/23 06:55 Vital Signs Temperature 98.0 F 09/22/23 06:55 Pulse Rate 115 H 09/22/23 06:55 Respiratory Rate 20 09/22/23 06:55 Blood Pressure 181/99 H 09/22/23 06:55 Pulse Oximetry 99 09/22/23 06:55 Oxygen Delivery Method Room Air 09/22/23 06:55 Temperature 98.0 F 09/22/23 06:55 Pulse Rate 115 H 09/22/23 06:55 Respiratory Rate 20 09/22/23 06:55 Blood Pressure 181/99 H 09/22/23 06:55 Pulse Oximetry 99 09/22/23 06:55 Oxygen Delivery Method Room Air 09/22/23 06:55 Discharge Plan Discharge Clinical Impression: Acute anterior epistaxis Patient Disposition: Home, Self-Care Instructions: Nosebleed (ED) Additional Instructions: As we discussed, your nose bleed was from the most common area. Sometimes these happen from trauma, cold, dry air or medications. You do not seem to have any of these risk factors. Because the area of bleeding was easily seen and small, this was cauterized with silver nitrate. There is no follow-up unless you have persistent bleeding again. It is very common to have watery, rodriguez tinged discharge for the next week. Do not blow your nose for the next 48 hours. Try to avoid aggressive wiping. Gentle dabs with a Kleenex for the watery discharge only. It is okay to use Tylenol for headache or discomfort. Avoid applying Vaseline or other agents inside the nose. After 3 days, he still have mild discomfort, it is okay to apply a pinpoint amount of Vaseline or nasal saline gel with a Q-tip. We have given you a nasal clamp. Sometimes the nose will start briefly rebleeding again. If it does, lie down, apply your clamp and wait for 20 minutes. If the bleeding has not stopped after 30 minutes, come back into the emergency department for evaluation. We would likely need to place the nasal balloon that we discussed instead. Thankfully, the nasal cautery does work about 90% of the time and no further follow-up is needed. Activity Level: Activity as Tolerated Discharge Diet: Regular Prescriptions: No Action rosuvastatin 5 mg tablet 5 mg PO DAILY eletriptan [Relpax] 20 mg tablet 20 mg PO Q2H PRN (Reason: migraine headache) Qty: 10 0RF Rx Instructions: do not exceed 2 doses per 24 hrs Follow Up/Referrals: Claudia Cruz MD [Primary Care Provider] - Stand Alone Forms: [employer] Info Instructions
== END 2023-09-22 07:54 | disposition home or self-care (01) ==
PROVIDERS: Emergency Provider Family Medicine; PCP Family Medicine
DX: R04.0 Epistaxis (principal)
CPT/HCPCS: 30901; 99283

== ENCOUNTER 2023-11-06 13:00 | Outpatient (RCR) | payer MEDICAID, SELFPAY ==
--- NOTE | 2023-10-30 14:36 | PT.OPEX ---
PT [facility] Eval initial eval PT [facility] Outpatient Eval Start: 10/30/23 12:02 Freq: Status: Active Protocol: Document 10/30/23 12:06 TURNER (Rec: 10/30/23 14:32 TURNER [id number]) E-signed By Pk Billy DPT Physical Therapy Outpatient Evaluation Insurance Information Recert Due Date 01/23/24 Insurance Name Medicaid,are Medical Diagnosis left hip pain Treating Diagnosis left hip pain muscle weakness Referring MD tahir us Subjective Subjective Janett comes into clinic dealing with L hip pain going on about two months now. With her job she can walk up to 10-20k steps a day and notices this has been increasingly more painful. Feels like all of her activity is limited due to this hip/groin pain. She did get an xray that showed potential impingement. Aside from walking has pain and limitations with sleeping, sitting, stairs, and new on going knee pain. Overall wants to have less pain and more mobility. Pain Comments -05/02 Current Work Status [employer] Occupation target Precautions Treatment Precautions/Contraindications allergies to hydrocodone Objective Other/Pertinent Objective *eval limited due to pain L HIP ROM WNL on R Flexion: with knee flexed 90- 95degrees with pain, with knee extended 45-50 degrees before pain Extension: 5 degrees extension before pain Internal Rotation: 15 degrees External Rotation 25 degrees before pain Abduction 25 degrees before pain LLE MMT: WNL R - pain a limiting factor during treatment Hip flexion: L 4-/5 Hip abduction: L3- /5 Knee flexion:L 4/5 Knee extension: L4- /5 SPECIAL TEST Stevens Compression: - Hip quadrant test: + JOSEPHINE test: + FADIR test: + Scour test: + JOINT MOBILITY/PALPATION with long axis lateral and inferior hip distraction more groin pain Assessment Assessment/Impression Pt is a 53 yr old female who presents with concerns of lt hip pain. Signs and symptoms likely indicating / consistent with hip impingement and groin pain. Patient also has notable objective findings including limited ROM, impaired hip stability, decreased strength also likely contributing to the problem. Patient is a good candidate for skilled therapy to target deficits described above. Skilled PT intervention is necessary for use of therapeutic exercise manual therapy, neuromuscular re- education, gait training, and therapeutic activity. Functional impairments include difficulty with: walking standing sitting sleeping stairs . See appropriate sections of PT eval for complete list of goals and POC . D/C plan and criteria is for pt to achieve the goals as listed below or until max rehab potential is met. Pt was agreeable with plan of care and goals established. Also due to patient acute/ painful nature that has been steadily increasing since her last physician visit approximately 3 weeks ago, we discussed the potential of seeing the orthopedic team to discuss potential options for treatment including but not limited to MRI and/or cortisone injections. Participation and evaluation was limited to some degree due to patient pain tolerance/ levels. Patient had her questions answered and was agreeable to devised POC Plan of Care Rehabilitation Potential Fair Physical Therapy Goals GOALS Pt will be independent with HEP within 10-12 weeks to allow for independence and continued improvement past formal therapy Patient will demonstrate/ report ability to climb 12 steps with handrail in reciprocal fashion, to allow for household and community ambulation within 10-12 weeks without pain Patient will demonstrate/ report ability to walk 10,000 steps in a day with pain level <1/10, to allow for community and household ambulation within 10-12 weeks Patient will demonstrate/ report ability to sleep with losing <1 hours of sleep being interrupted by left hip pain. within 10-12 weeks Coordination/Communication With Referral Source Treatment Plan/Direct Interventions Gait Training,Joint Mobilization,Manual Therapy, Neuromuscular Re-ed,Self-Care/ Home Management Frequency/Duration 1-2 visits a week for 10-12 weeks Patient Will Be Discharged From Therapy Completion of LTG(s), Independent w/HEP Evaluation Billing Untimed Code Treatment Minutes 20 Complexity Low Certification Information Physician Comment/Change : Physician NPI Number #
== END 2024-01-03 09:52 | disposition home or self-care (01) ==
PROVIDERS: PCP Family Medicine; Visit Provider Family Medicine
DX: M25.552 Pain in left hip (principal); M62.81 Muscle weakness (generalized); Z51.89 Encounter for other specified aftercare
CPT/HCPCS: 97110; 97140; 97161

== ENCOUNTER 2023-11-16 09:53 | Outpatient (CLI) | payer MEDICAID, SELFPAY ==
--- NOTE | 2023-11-16 10:15 | FL_ITS ---
Patient: CORNELIO MAYO Facility:?[facility] Patient ID:?[id number] Site Patient ID:?[id number]. Site :?[id number] Study:?XRay-Hip INJECTION W/FLUORO TO READ-11/16/2023 11:13:03 AM Ordering Physician:LAKSHMI Final Report: Indication: SYNOVITIS AND Tenosynovitis, LEFT HIP PAIN Procedure : Informed consent was obtained. The site was marked. Time-out was performed. The skin of the left hip was cleansed with ChloraPrep. A sterile drape was placed. 8 cc of 1 percent lidocaine was administered for superficial anesthesia. Subsequently a 22 gauge spinal needle was introduced into the left hip joint under intermittent fluoroscopic guidance. Injection of 7 cc 1 percent lidocaine and 2 cc 40 milligram/cc Depo-Medrol then performed into the left hip joint. The needle was removed and hemostasis achieved with direct pressure. A dressing was placed. The patient tolerated the procedure well without immediate complication. Total fluoroscopy time 60 seconds. Impression: Successful fluoroscopically guided left hip injection with 80 milligrams of Depo-Medrol. Dictated by Anupam Wallace MD @ 11/16/2023 1:42:17 PM Signed by:?Anupam Wallace MD @11/16/2023 1:42:17 PM (Electronic Signature)
== END 2023-11-16 09:54 | disposition home or self-care (01) ==
LOC: RAD 09:54
PROVIDERS: PCP Family Medicine; Visit Provider Orthopaedic Surgery Sports Medicine
DX: M25.552 Pain in left hip (principal); M65.9 Synovitis and tenosynovitis, unspecified
CPT/HCPCS: 20610; 77002; J1010

== ENCOUNTER 2023-11-22 10:30 | Outpatient (CLI) | payer MEDICAID, SELFPAY | END 2023-11-22 10:31 | disposition home or self-care (01) | PROVIDERS: PCP Family Medicine; Visit Provider Nurse Practitioner | DX: R51.9 Headache, unspecified (principal); Z86.79 Personal history of other diseases of the circulatory system | CPT/HCPCS: 85651; 86140 ==

== ENCOUNTER 2024-02-12 12:54 | Outpatient (CLI) | payer MEDICAID, SELFPAY ==
--- NOTE | 2024-02-12 13:20 | CRLHL7_ITS ---
For Patients: As a result of the Cures Act, medical imaging exams and procedure reports are released immediately into your electronic medical record. You may view this report before your referring provider. If you have questions, please contact your health care provider. BILATERAL SCREENING MAMMOGRAM WITH COMPUTER-AIDED DETECTION AND TOMOSYNTHESIS TECHNIQUE: CC and MLO views were obtained. These mammographic images have been obtained using full-field digital technique. These mammographic images were interpreted with the benefit of computer-aided detection. Breast Tomosynthesis was used in this interpretation. COMPARISON FILM: 12/01/22, 09/30/21, 09/08/20. FINDINGS: There are scattered areas of fibroglandular density IMPRESSION: There is no radiographic evidence for malignancy. ASSESSMENT: BI-RADS Category 1: Negative RECOMMENDATION: Routine screening mammogram in 1 year. A lay language report of this examination will be provided to the patient. Anupam Wallace M.D. Diagnostic Radiologist [email or web address] CHIO/sharron Transcribed: 2:40 p.mDaniel mcdermott/Dictated by: Anupam Wallace MD @ 02/12/2024 2:01:00 PM (Electronically Signed)
== END 2024-02-12 12:55 | disposition home or self-care (01) ==
LOC: MAMMO 12:55
PROVIDERS: PCP Family Medicine; Visit Provider Family Medicine
DX: Z12.31 Encounter for screening mammogram for malignant neoplasm of breast (principal)
CPT/HCPCS: 77063; 77067

== ENCOUNTER 2024-09-26 08:25 | Emergency (ER) | payer MEDICAID, SELFPAY ==
--- OUTSIDE RECORDS SUMMARY | 2024-09-26 08:28 | XMS_ITS | Clinical Summary ---
Author Organization [facility] Address [address] [address] Phone Care Team Providers Care Product Blending Supervisor Name Role Phone Elsewhere, Pcp Primary Care Provider Unavailabl e Allergies No known active allergies Medications potassium chloride CR (K-DUR, KLOR-CON M) 20 MEQ tablet Take 1 Tab by mouth one time a day. Do not crush. 34 Tab 12 05/19/2014 Active pravastatin (PRAVACHOL) 40 MG tablet Take 1 Tab by mouth one time a day. 34 Tab 12 05/19/2014 Active amLODIPine (NORVASC) 2.5 MG tablet Take 1 Tab by mouth one time a day. 30 Tab 2 07/08/2015 Active LORazepam (ATIVAN) 0.5 MG tablet TAKE 1 TABLET (0.5 MG) BY ORAL ROUTE AT BEDTIME 34 Tab 09/25/2015 Active hydroCHLOROthia zide 25 MG tablet TAKE 1 TABLET BY MOUTH ONE TIME A DAY. 30 Tab 03/05/2016 Active Active Problems Problem Noted Date Diagnosed Date Other and unspecified hyperlipidemia 05/19/2014 Anxiety state 12/10/2012 Overview (07/13/2015): IMO Update Essential hypertension 02/15/2011 Overview (07/13/2015): IMO Update Immunizations Name Administration Dates Next Due Influenza 07/20/2013 Influenza Trivalent With Preservative 05/19/2014 Tdap-Tetanus, Diphtheria, Pertussis 11+ Yrs 11/22 Surgical History Surgery Date Site/Laterality Comments APPENDECTOMY 1990 open Medical History Medical History Date Comments Hypertension Family History Medical History Relation Comments Other Negative Family Hx pt is adopted Social History Tobacco Use Types Packs/Day Years Used Date Smoking Tobacco: Former Smokeless Tobacco: Never Alcohol Use Standard Drinks/Week Comments Yes 0 (1 standard drink = 0.6 oz pur e alcohol) occasional Comments No Sex and Gender Information Value Date Recorded Sex Assigned at Not on file Legal Sex Female 5:04 AM BOX MAKER PAPERBOARD Gender Identity Not on file Sexual Orientation Not on file Obstetrics History Para Term AB IAB SAB Ectopic Molar Multiple Living Live Births 4 4 4 0 3 4 Date Outcome GA Total Labor Labor//3rd Weight Sex Type Anes PTL Darlyn A1 A5 Name Clin Term Livin g 995 Term 38w 0d M Decea sed Rylan Comments:Stillborn-cor d wrapped 997 Term 38w 0d M Livin g Jaskaran Comments:Cord wrapped 000 Term 38w 0d M Livin g Kyaw Comments:Cord wrapped Last Filed Vital Signs Vital Sign Reading Time Taken Comments Blood Pressure 136/87 09/29/2014 10:20 AM CDT Pulse 90 09/29/2014 10:20 AM CDT Temperature 36.7 C (98.1 F) 12/20/2013 10:07 AM CDT Respiratory Rate 16 09/29/2014 10:20 AM CDT Oxygen Saturation 97% 09/29/2014 10:20 AM CDT Inhaled Oxygen Concentration - - Weight 74.4 kg (164 lb) 09/29/2014 10:20 AM CDT Height 160 cm (5' 3) 12/20/2013 10:07 AM CDT Body Mass Index 29.05 12/20/2013 10:07 AM CDT Plan of Treatment Health Maintenance Due Date Last Done Comments CT Colonography 1970 Cervical Cancer Screening 1970 Cologuard 1970 Colonoscopy 1970 Colorectal Cancer Screening 1970 FIT/FOBT 1970 Last pap w/ HPV Testing 1970 Last pap w/o HPV Testing 1970 Sigmoidoscopy 1970 Hepatitis B Vaccine (Standin g Order) (1 of 3 - 19+ 3-dose series) 1989 MAMMO,SCREEN 03/18/2015 03/18/2014, 12/10/2012, 12/13/2010 Pneumococcal Vaccine: 50+ yr s (Standing Order) (1 of 1 - PCV) 2020 Shingrix (Zoster recombinant ) vaccine (Standing Order) (1 of 2) 2020 TETANUS (Standing Order) 12/10/2020 12/10/2010 COVID-19 Vaccine (1 - 2023-2 5 season) 2024 Influenza Vaccine Seasonal (Standing Order) (#1) 2024 05/19/2014 PERTUSSIS (Standing Order) Completed 12/10/2010 HPV Vaccine (Standing Order) Aged Out No longer eligible based on patient's age to complete this topic Medical Devices Implanted Type Area Drafting Layout Worker Device Identifier Shelf Expiration Date Model / Serial / Lot Sling Pelvic T-Sling [id number] - [id number] Implanted:Qty: 1 on 10/28/2011 at [facility]. [id number] / [id number] / [id number] Procedures Procedure Name Priority Date/Time Associated Diagnosis Comments MAMM DIGITAL SCREENING Routine 03/18/2014 10:35 AM CDT Visit for screening mammogram from Last 3 Months or Most Recently Relevant to Health Maintenance Results * MAMM DIGITAL SCREENING (03/18/2014 10:35 AM CDT) Anatomical Region Laterality Modality Breast Bilateral Mammography 03/18/2014 10:3 5 AM CDT Narrative 03/20/2014 8:23 AM CDT This document is currently in Final Status Exam MAMM DIGITAL SCREENING COMPARISON: 12/10/2012, 12/13/2010 TECHNICAL: Standard MLO and CC views of both breasts acquired. Computer-Aided Detection System was utilized. BREAST DENSITY: The breasts are heterogeneously dense, which may obscure small masses. FINDINGS: No suspicious masses, architectural distortion, skin thickening, nipple retraction, or suspicious calcifications are appreciated. IMPRESSION: No suspicious radiographic findings. Routine followup recommended with mammogram in 1 year. BI-RADS 1: Negative. Your mammogram shows that your breast tissue is dense. Dense breast tissue is relatively common and is found in more than 40% of women. However, dense breast tissue may make it more difficult to identify precancerous lesions or cancer through a mammogram and may also be associated with an increased risk of breast cancer. This information about the results of your mammogram is given to you to raise your own awareness and to help inform your conversations with your treating clinician who has received a report of your mammogram results. Together you can decide which screening options are right for you based on your mammogram results, individual risk factors, or physical examination. Dictated By: Donaldo Zuniga MD 03/18/2014 4:59 PM Edited By: HALLEY 03/18/2014 4:59 PM Signed: Donaldo Zuniga MD 03/20/2014 8:23 AM Laura Hall MD MAMMOGRAPHY ORDERABLES Final Result from Last 3 Months or Most Recently Relevant to Health Maintenance Insurance [facility] 09-04-15 [id number] [place] [id number] [employer]ERCIAL OON [facility] 09-04-15 [id number] [facility] [place] [id number] Care Teams Product Blending Supervisor Relationship Specialty Start Date End Date Elsewhere, Pcp PCP - General 07/13/16
--- OUTSIDE RECORDS SUMMARY | 2024-09-26 08:28 | XMS_ITS | Clinical Summary ---
Author Organization [facility] Address [address] [place] [id number] Care Team Providers Care Progressive Assembler And Fitter Name Role Phone Claudia Cruz MD Primary Care Provider + Allergies Active Allergy Reactions Criticality Noted Date Comments Hydrocodone Dizziness,Nausea And Vomiting,Vomiting Low 05/28/2024 Medications oxyCODONE (ROXICODONE) 5 mg immediate release tablet take 1 tablet by mouth every 4-8 hours as needed pain.* 08/21/2023 Active ibuprofen (ADVIL; MOTRIN) 800 mg tablet TAKE ONE TABLET BY MOUTH THREE TIMES DAILY WITH FOOD FOR 10 DAYS* 10/10/2023 Active eletriptan (RELPAX) 20 mg tablet Take by mouth. 10/06/2022 Active rosuvastatin calcium (ROSUVASTATIN ORAL) Take by mouth. Active Active Problems No known active problems Encounters Date Type Department Care Team Description 07/03/2024 7:20 AM DEVELOPMENT TRAINER Procedure Only [facility] [address] [place] [address] Tobias Jacobs MD Procedure (Right shoulder ultrasound guide... 07/03/2024 Travel 06/28/2024 Travel from Last 3 Months Social History Tobacco Use Types Packs/Day Years Used Date Smoking Tobacco: Former Cigarettes Smokeless Tobacco: Never Tobacco Cessation:Counseling Given: Not Answered Comments Unknown Sex and Gender Information Value Date Recorded Sex Assigned at Not on file Legal Sex Female 3:26 PM CDT Gender Identity Not on file Sexual Orientation Not on file Obstetrics History Last Filed Vital Signs Vital Sign Reading Time Taken Comments Blood Pressure 152/91 07/03/2024 7:23 AM DEVELOPMENT TRAINER Pulse 75 07/03/2024 7:23 AM DEVELOPMENT TRAINER Temperature 36.9 C (98.4 F) 07/03/2024 7:23 AM DEVELOPMENT TRAINER Respiratory Rate - - Oxygen Saturation 100% 07/03/2024 7:23 AM DEVELOPMENT TRAINER Inhaled Oxygen Concentration - - Weight - - Height - - Body Mass Index - - Plan of Treatment Health Maintenance Due Date Last Done Comments Tdap 1981 Depression screening for age 12+ 1982 HIV for age 15-65 1985 BMI (ht and wt on same day) for age 18+ 1988 Hepatitis C screening for age 18-79 1988 Tetanus booster 1990 Colonoscopy through age 75 2015 Lipids for age 45-75 2015 Mammogram for age 45-75 2015 Pneumococcal series for age 50+ (1 of 1 - PCV) 2020 Zoster (shingles) series for age 50+ (1 of 2) 2020 Pap test for age 21-65 07/21/2023 07/21/2020, 2019 COVID-19 vaccine series (2023- season) 2024 08/03/2021, 10/31/2020, 10/10/2020 Influenza for age 50-64 03/24/2024 Procedures Procedure Name Priority Date/Time Associated Diagnosis Comments BEDSIDE US STUDY ARCHIVE Routine 07/03/2024 10:45 AM DEVELOPMENT TRAINER Calcific tendonitis of right shoulder region SYSTEM CONTROLLER THIN PREP PAP SCREEN IMAGED Routine 07/21/2020 11:00 AM DEVELOPMENT TRAINER from Last 3 Months or Most Recently Relevant to Health Maintenance Results * BEDSIDE US STUDY ARCHIVE (07/03/2024 10:45 AM DEVELOPMENT TRAINER) Narrative Alissa Murray - 07/03/2024 10:45 AM DEVELOPMENT TRAINER The patient was seen for ultrasound guided injection by Dr. Tobias Jacobs. Ultrasound was not used for diagnostic purposes, but to guide the needle placement and document the position of the injection. See patient's EPIC encounter for the detail of the procedure; see ARNAV for saved images of the injection. Tobias Jacobs MD PROCEDURE ORD Final Resu lt * SYSTEM CONTROLLER THIN PREP PAP SCREEN IMAGED (07/21/2020 11:00 AM DEVELOPMENT TRAINER) Case Report Gynecologic Cytology Report Case: [id number] Authorizing Provider: Claudia Cruz MD Collected: 07/21/2020 1100 Ordering Location: [facility] Received: 07/21/2020 3514 First Screen: Latricia Carrizales Pathologist: Mary Ann King MD Specimen: SYSTEM CONTROLLER ThinPrep Vial Screening, Cervical/Vaginal 08/03/2020 12:50 PM DEVELOPMENT TRAINER [facility] [employer] [facility] INTERPRETATION/ RESULT NEGATIVE FOR INTRAEPITHELIAL LESION OR MALIGNANCY (NIL) (none) 08/03/2020 12:50 PM DEVELOPMENT TRAINER [facility] R NON-NEOPLASTIC FINDING(S) Reactive cellular changes associated with inflammation/repa ir 08/03/2020 12:50 PM DEVELOPMENT TRAINER [facility] SPECIMEN ADEQUACY Satisfactory for evaluation Endocervical component present 08/03/2020 12:50 PM DEVELOPMENT TRAINER [facility] HPV REQUEST HPV and PAP 08/03/2020 12:50 PM DEVELOPMENT TRAINER [facility] Additional Information 08/03/2020 12:50 PM DEVELOPMENT TRAINER [facility] Comment: Interpreted at [facility] - [address], [place] [address] Automated Review Successful 08/03/2020 12:50 PM DEVELOPMENT TRAINER [facility] Comment:Specimen processed s uccessfully by automated digital product manager device, ThinPrep Imaging System, [employer] ANCILLARY TESTING SYSTEM CONTROLLER HPV Ordered, Please see separate report 08/03/2020 12:50 PM DEVELOPMENT TRAINER [facility] Note The pap test is a screening technique, not a diagnostic procedure. It is used primarily to screen for squamous cancers and precursor lesions. Published studies have shown that it is subject to both false negative and false positive results. The pap test should not be used as the sole means to diagnose or exclude pre-malignant and malignant lesions. 08/03/2020 12:[address] [facility] Other (Cervical/Vagina l) 07/21/2020 11:00 AM DEVELOPMENT TRAINER 07/21/2020 5:34 PM DEVELOPMENT TRAINER us Claudia Cruz MD PATHOLOGY/CYTOLOGY Final Result [facility] [address] [place], [place] [address] [place] [address], from Last 3 Months or Most Recently Relevant to Health Maintenance Insurance [facility] Care Teams Progressive Assembler And Fitter Relationship Specialty Start Date End Date Claudia Cruz MD [address] [place] [address] PCP - General Family Practice 05/30/24
[2024-09-26 08:31] VITALS: BP 171/102; PULSE 99; RESP 18; TEMP 37.6; O2SAT 98; BMI 24.8
--- NOTE | 2024-09-26 08:46 | CRLHL7_ITS ---
For Patients: As a result of the Century Cures Act, medical imaging exams and procedure reports are released immediately into your electronic medical record. You may view this report before your referring provider. If you have questions, please contact your health care provider. INDICATION: Trauma, right rib pain TECHNIQUE: Axial images were obtained from the thoracic inlet to the diaphragm. Reformats: Coronal and sagittal IV Contrast: None COMPARISON: Chest CT 05/07/2021 FINDINGS: Mediastinum: Thoracic aorta is normal in caliber. Mild atherosclerotic calcification. No pericardial effusion. No enlarged mediastinal lymph nodes. Lungs and Pleural Space: No pleural effusion or pneumothorax. There is some dependent atelectasis within both lungs. Discoid atelectasis within the lingula. Chest wall: No masses. Upper abdomen: Status post cholecystectomy. Bones: Unremarkable for age. IMPRESSION: Unremarkable chest CT. No evidence of fracture. Please note that all CT scans at this facility use dose modulation, iterative reconstruction, and/or weight-based dosing when appropriate to reduce radiation dose to as low as reasonably achievable. Dictated by Gio Saeed MD @ 09/26/2024 9:13:38 AM (Electronically Signed)
--- NOTE | 2024-09-26 08:47 | ED.GENADULT ---
HPI - General Adult General Time Seen by Provider: 08:48 Date Seen: 09/26/24 Chief complaint: Rib Pain Stated complaint: thinks she bruised or cracked rib Time Seen by Provider: 09/26/24 08:38 Source: patient and family Mode of arrival: ambulatory Limitations: no limitations History of Present Illness HPI narrative: Janett is a 54-year-old female hyperlipidemia, migraine with aura, presents emerged department via private car with with right rib pain. Patient states yesterday she was trying to clean snow off of her car, this was in the afternoon. There was an area on the windshield where she tried to jump up to clean the area she had her chest just under her right breast on to the gibson of the car. Since then she has had increased pain to the area, pain with inspiration and worsening shortness of breath. Patient did not sleep at all last night, she has been trying [id number] medications with no relief. With she denies any abdominal pain, no back pain, no lightheadedness or dizziness. Due to the worsening patient presents emerged department. Related Data Previous Rx's ?Medication ?Instructions ?Recorded oxycodone 5 mg tablet 5 mg PO Q6H PRN pain #6 tabs 09/26/24 Allergies Allergy/AdvReac Type Severity Reaction Status Date / Time hydrocodone Allergy Mild Vomiting Verified 09/26/24 08:37 Review of Systems Status of ROS: Reports: 10 or more systems reviewed and unremarkable except as noted in History and below [facility] Medical History Left facial pain ?R51.9 - Headache, unspecified (ICD-10) Plantar fasciitis of right foot ?M72.2 - Plantar fascial fibromatosis (ICD-10) Migraine with aura ?G43.109 - Migraine with aura, not intractable, without status migrainosus (ICD-10) History of essential hypertension ?Z86.79 - Personal history of other diseases of the circulatory system (ICD-10) Surgical History (Updated 10/10/23 @ 15:20 by Claudia Cruz MD) Status post trigger finger release (08/21/23) ?Z98.890 - Other specified postprocedural states (ICD-10) Trigger finger, right middle finger (09/01/21) ?M65.331 - Trigger finger, right middle finger (ICD-10) S/p bilateral carpal tunnel release (2020) ?Z98.890 - Other specified postprocedural states (ICD-10) Status post laparoscopic cholecystectomy (2017) ?Z90.49 - Acquired absence of other specified parts of digestive tract (ICD-10) History of pubovaginal sling (2010) ?Z96.0 - Presence of urogenital implants (ICD-10) History of bilateral ligation of fallopian tubes (2007) ?Z98.51 - Tubal ligation status (ICD-10) History of appendectomy (1990) ?Z90.49 - Acquired absence of other specified parts of digestive tract (ICD-10) Family History Other Adopted person Social History Narrative: Exercise involving walking, 97190 steps daily 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 , [employer]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, 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 Non-smoker, quit age 25, 5 pack years Social drinker, 3-4/month Smoking Status: Former smoker What tobacco products do you use: cigarettes Smoking quit date/years: >15 years ago Do you use any of these nicotine containing products: None Second hand tobacco smoke exposure: No How often do you have a drink containing alcohol: 2-4 times a month How many standard drinks containing alcohol do you have on a typical day: 1 or 2 How often do you have six or more drinks on one occasion: Never AUDIT-C Alcohol total score: 2 Non-prescribed substance use: denies use service: No Exam Narrative: Exam Narrative: General: Mild distress sitting comfortably HEENT: Pupils equal round reactive to light, extraocular muscles intact Nontender cervical spine Lungs: Clear to auscultation bilaterally Abdomen: Soft, nontender, bowel sounds present, Nontender to palpation the right upper quadrant area. Muscle skeletal: Tender to palpation just under the right breast, level 4 through 6, lateral, no crepitus, ecchymosis or swelling Nontender this thoracic spine and posterior ribs Neuro: GCS 15 Const: Vital Signs, click to edit/add: Vital Signs - 24 hr 09/26/24 08:31 Temperature 99.6 F Pulse Rate [Right Pulse Oximeter] 99 Respiratory Rate 18 Blood Pressure [Ri ght Upper Arm] 171/102 H Pulse Oximetry 98 Oxygen Delivery Me thod Room Air Course Course ED Course: ED course: AIDET performed. Vitals are stable at this time, based on history and physical exam will obtain CT chest without IV contrast rule out fracture versus less likely pneumothorax, will give oxycodone 5 mg IR with 4 mg Zofran ODT for pain. Differential includes rib fractures, rib contusion, pneumothorax, pulmonary contusion as well as all etiologies. Reevaluation(s) Time of Reevaluation #1: 09:28 Reevaluation #1: CT chest without IV contrast: IMPRESSION: Unremarkable chest CT. No evidence of fracture. Patient was updated on imaging results, she is feeling better after above care given, plan to discharge, follow-up with her primary care provider over the next 7-10 days, return precautions given. Vital Signs Vital signs: Initial Vital Signs Temperature 99.6 F 09/26/24 08:31 Temperature Source Temporal Artery Scan 09/26/24 08:31 Pulse Rate 99 09/26/24 08:31 Pulse Rhythm Regular 09/26/24 08:31 Pulse Strength 3+ Normal 09/26/24 08:31 Respiratory Rate 18 09/26/24 08:31 Blood Pressure 171/102 H 09/26/24 08:31 Blood Pressure Mean 125 H 09/26/24 08:31 Blood Pressure Position Sitting 09/26/24 08:31 Pulse Oximetry 98 09/26/24 08:31 Oxygen Delivery Method Room Air 09/26/24 08:31 Vital Signs Temperature 99.6 F 09/26/24 08:31 Pulse Rate 99 09/26/24 08:31 Respiratory Rate 18 09/26/24 08:31 Blood Pressure 171/102 H 09/26/24 08:31 Pulse Oximetry 98 09/26/24 08:31 Oxygen Delivery Method Room Air 09/26/24 08:31 Temperature 99.6 F 09/26/24 08:31 Pulse Rate 99 09/26/24 08:31 Respiratory Rate 18 09/26/24 08:31 Blood Pressure 171/102 H 09/26/24 08:31 Pulse Oximetry 98 09/26/24 08:31 Oxygen Delivery Method Room Air 09/26/24 08:31 Medications Administered Medications: Discontinued Medications Generic Name Dose Route Start Last Admin Trade Name Freq PRN Reason Stop Dose Admin Ondansetron HCl 4 mg 09/26/24 08:46 09/26/24 09:09 Ondansetron Odt 4 Mg Tab PO 09/26/24 08:47 4 mg ONCE ONE Administration Oxycodone HCl 5 mg 09/26/24 08:46 09/26/24 09:09 Oxycodone 1 Mg/Ml Oral Soln PO 09/26/24 08:47 Not Given ONCE ONE Oxycodone HCl 5 mg 09/26/24 09:27 09/26/24 09:29 Oxycodone 5 Mg Tablet PO 09/26/24 09:28 5 mg ONCE ONE Administration Discharge Plan Discharge Clinical Impression: Contusion of rib on right side Patient Disposition: Home, Self-Care Condition: Improved Additional Instructions: Oxycodone 5 mg IR, at bedtime for breakthrough pain. Tylenol and or Motrin every 6 hours for pain, follow up with primary in the next 7-10 days. Prescriptions: New oxycodone 5 mg tablet 5 mg PO Q6H PRN (Reason: pain) Qty: 6 0RF Follow Up/Referrals: Claudia Cruz MD [Primary Care Provider] - Stand Alone Forms: [facility] Info Instructions
[2024-09-26] MEDS: ONDANSETRON ODT 4 MG TAB PO (09:09)
--- OUTSIDE RECORDS SUMMARY | 2024-09-26 09:24 | XMS_ITS | Clinical Summary ---
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 51-9400 / N/A / [id number] [...] Most Recently Relevant to Health Maintenance Insurance [facility] 09-04-15 [id number] [place] Thakkar [id number] GENERIC COMMERCIAL OON [facility] 09-04-15 [phone] [facility] [place] Thakkar [id number] Care Teams Ordnance Officer Relationship Specialty Start Date End Date Elsewhere, Pcp PCP - General 07/13/16
--- OUTSIDE RECORDS SUMMARY | 2024-09-26 09:24 | XMS_ITS | Clinical Summary ---
Author Organization [facility] Address [address] [place] [address] Care Team Providers Care Iron Carrier Name Role Phone Claudia Cruz MD Primary [...] Department Care Team Description 07/03/2024 7:20 AM DRY PLASTERER Procedure Only [facility] [address] [place] [address] Tobias Jacobs MD Procedure (Right shoulder ultrasound [...] Comments Blood Pressure 152/91 07/03/2024 7:23 AM DRY PLASTERER Pulse 75 07/03/2024 7:23 AM DRY PLASTERER Temperature 36.9 C (98.4 F) 07/03/2024 7:23 AM DRY PLASTERER Respiratory Rate - - Oxygen Saturation 100% 07/03/2024 7:23 AM DRY PLASTERER Inhaled Oxygen Concentration - - Weight - [...] US STUDY ARCHIVE Routine 07/03/2024 10:45 AM DRY PLASTERER Calcific tendonitis of right shoulder region CASING MIXER THIN PREP PAP SCREEN IMAGED Routine 07/21/2020 11:00 AM DRY PLASTERER from Last 3 Months or Most Recently Relevant to Health Maintenance Results * BEDSIDE US STUDY ARCHIVE (07/03/2024 10:45 AM DRY PLASTERER) Narrative Alissa Murray - 07/03/2024 10:45 AM DRY PLASTERER The patient was seen for ultrasound guided injection by Dr. Tobias Jacobs. Ultrasound was not used for diagnostic purposes, but to guide the needle placement and document the position of the injection. See patient's EPIC encounter for the detail of the procedure; see ARNAV for saved images of the injection. Tobias Jacobs MD PROCEDURE ORD Final Resu lt * CASING MIXER THIN PREP PAP SCREEN IMAGED (07/21/2020 11:00 AM DRY PLASTERER) Case Report Gynecologic Cytology Report Case: [id number] Authorizing Provider: Claudia Cruz MD Collected: 07/21/2020 1100 Ordering Location: [facility] Received: 07/21/2020 0804 First Screen: Latricia Carrizales Pathologist: Mary Ann King MD Specimen: CASING MIXER ThinPrep Vial Screening, Cervical/Vaginal 08/03/2020 12:50 PM DRY PLASTERER [facility] [employer] [facility] INTERPRETATION/ RESULT NEGATIVE FOR INTRAEPITHELIAL LESION OR MALIGNANCY (NIL) (none) 08/03/2020 12:50 PM DRY PLASTERER [facility] R NON-NEOPLASTIC FINDING(S) Reactive cellular changes associated with inflammation/repa ir 08/03/2020 12:50 PM DRY PLASTERER [facility] SPECIMEN ADEQUACY Satisfactory for evaluation Endocervical component present 08/03/2020 12:50 PM DRY PLASTERER [facility] HPV REQUEST HPV and PAP 08/03/2020 12:50 PM DRY PLASTERER [facility] Additional Information 08/03/2020 12:50 PM DRY PLASTERER [facility] Comment: Interpreted at [facility] - [address], [place] [address] Automated Review Successful 08/03/2020 12:50 PM DRY PLASTERER [facility] Comment:Specimen processed s uccessfully by automated stoner hand device, ThinPrep Imaging System, [employer] ANCILLARY TESTING CASING MIXER HPV Ordered, Please see separate report 08/03/2020 12:50 PM DRY PLASTERER [facility] Note The pap test is a screening technique, not a diagnostic procedure. It is used primarily to screen for squamous cancers and precursor lesions. Published studies have shown that it is subject to both false negative and false positive results. The pap test should not be used as the sole means to diagnose or exclude pre-malignant and malignant lesions. 08/03/2020 12:50 PM [facility]LAST[facility] Other (Cervical/Vagina l) 07/21/2020 11:00 AM DRY PLASTERER 07/21/2020 5:34 PM DRY PLASTERER us Claudia Cruz MD PATHOLOGY/CYTOLOGY Final Result [facility] [address] [place], [place] [address] [place] [address], from Last 3 Months or Most Recently Relevant to Health Maintenance Insurance [facility] Care Teams Iron Carrier Relationship Specialty Start Date End Date Claudia Cruz MD [address] [place] [address] PCP - General Family Practice 05/30/24
[2024-09-26] MEDS: OXYCODONE 5 MG TABLET PO (09:29)
== END 2024-09-26 09:43 | disposition home or self-care (01) ==
PROVIDERS: Emergency Provider Student in an Organized Health Care Education/Training Program; PCP Family Medicine
DX: S20.211A Contusion of right front wall of thorax, initial encounter (principal); X58.XXXA Exposure to other specified factors, initial encounter
CPT/HCPCS: 71250; 99284; A9270

== ENCOUNTER 2024-10-25 10:00 | Outpatient (CLI) | payer MEDICAID, SELFPAY | END 2024-10-25 10:01 | disposition home or self-care (01) | LOC: NFLDREF 10-31 15:36 | PROVIDERS: PCP Family Medicine; Referring Provider Family Medicine; Visit Provider Family Medicine | DX: E78.5 Hyperlipidemia, unspecified (principal); R74.8 Abnormal levels of other serum enzymes; Z11.59 Encounter for screening for other viral diseases | CPT/HCPCS: 80053; 80061; 86803; 87340 ==

== ENCOUNTER 2024-10-31 10:39 | Outpatient (CLI) | payer MEDICAID, SELFPAY ==
[2024-11-02 05:25] LABS: HPV Source Cervical/Vag; HPV, High Risk by TMA Not Detected
== END 2024-10-31 10:40 | disposition home or self-care (01) ==
PROVIDERS: PCP Family Medicine; Visit Provider Family Medicine
DX: Z12.4 Encounter for screening for malignant neoplasm of cervix (principal); Z11.51 Encounter for screening for human papillomavirus (HPV)
CPT/HCPCS: 87624; 87625; 88141; 88142

== ENCOUNTER 2024-11-07 08:03 | Outpatient (CLI) | payer MEDICAID, SELFPAY ==
--- NOTE | 2024-11-07 08:15 | CRLHL7_ITS ---
For Patients: As a result of the Century Cures Act, medical imaging exams and procedure reports are released immediately into your electronic medical record. You may view this report before your referring provider. If you have questions, please contact your health care provider. INDICATION: ABNORMAL LEVELS OF OTHER SERUM ENZYMES COMPARISON: Ultrasound 02/05/2018, CT chest 09/26/2024 TECHNIQUE: Real time rodriguez scale imaging and color Doppler analysis was performed of the right upper quadrant. FINDINGS: The patient`s liver measures 16.6 cm and has uniform echogenicity. There is a normal appearance of the hepatic IVC and proximal abdominal aorta. There is no evidence of ascites. The gallbladder is absent. The common bile duct is of normal size and measures 5.2 mm in diameter at the level of the neo hepatis. The pancreas appears normal. There is no evidence of a stone or hydronephrosis within the right kidney. The right kidney measures 11.1 cm in length. Simple circumscribed cyst lower pole right kidney measures 2.9 x 2.4 x 2.2 cm. IMPRESSION: Status post cholecystectomy. No biliary duct dilation. Normal liver. Dictated by Anupam Wallace MD @ 11/07/2024 8:26:32 PM (Electronically Signed)
== END 2024-11-07 08:04 | disposition home or self-care (01) ==
LOC: US 08:04
PROVIDERS: PCP Family Medicine; Visit Provider Family Medicine
DX: R74.8 Abnormal levels of other serum enzymes (principal)
CPT/HCPCS: 76705

== ENCOUNTER 2025-05-16 09:59 | Emergency (ER) | payer OTHER, SELFPAY ==
--- OUTSIDE RECORDS SUMMARY | 2025-05-16 10:02 | XMS_ITS | Clinical Summary ---
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 51-9400 / N/A / [...] Most Recently Relevant to Health Maintenance Insurance [facility] 09-04-15 [phone] [place] [id number] [facility] 09-04-15 [phone] [facility] [place] [id number] Care Teams Radiology Physician Relationship Specialty Start Date End Date Elsewhere, Pcp PCP - General 07/13/16
--- OUTSIDE RECORDS SUMMARY | 2025-05-16 10:02 | XMS_ITS | Clinical Summary ---
Author Organization [facility] Address [address] [place] [address] Care Team Providers Care Production Maintenance Mechanic Name Role Phone Claudia Cruz MD Primary [...] Active Active Problems No known active problems Social History Tobacco Use Types Packs/Day Years [...] Comments Blood Pressure 152/91 07/03/2024 7:23 AM CARTOGRAPHIC DRAFTER Pulse 75 07/03/2024 7:23 AM CARTOGRAPHIC DRAFTER Temperature 36.9 C (98.4 F) 07/03/2024 7:23 AM CARTOGRAPHIC DRAFTER Respiratory Rate - - Oxygen Saturation 100% 07/03/2024 7:23 AM CARTOGRAPHIC DRAFTER Inhaled Oxygen Concentration - - Weight - - Height - - Body Mass Index - - Plan of Treatment Health Maintenance Due Date Last Done Comments Tetanus booster 1981 Depression screening for age 12+ 1982 HIV for age 15-65 1985 BMI (ht and wt on same day) for age 18+ 1988 Hepatitis C screening for age 18-79 1988 Hepatitis B series for 19+ ( 1 of 3 - 19+ 3-dose series) 1989 Colonoscopy through age 75 2015 Lipids for age 45-75 2015 Mammogram for age 45-75 2015 Pneumococcal series for age 50+ (1 of 1 - PCV) 2020 Zoster (shingles) series for age 50+ (1 of 2) 2020 Pap test for age 21-65 07/21/2023 07/21/2020, 2019 COVID-19 vaccine series ( - 2024- season) 2025 08/03/2021, 10/31/2020, 10/10/2020 Influenza Vaccine (#1) 2025 RSV vaccine for adults or pr egnancy (1 - 1-dose 75+ series) 2045 Procedures Procedure Name Priority Date/Time Associated Diagnosis Comments GIFT PACKER THIN PREP PAP SCREEN IMAGED Routine 07/21/2020 11:00 AM CARTOGRAPHIC DRAFTER from Last 3 Months or Most Recently Relevant to Health Maintenance Results * GIFT PACKER THIN PREP PAP SCREEN IMAGED (07/21/2020 11:00 AM CARTOGRAPHIC DRAFTER) Case Report Gynecologic Cytology Report Case: [id number] Authorizing Provider: Claudia Cruz MD Collected: 07/21/2020 1100 Ordering Location: [facility] Received: 07/21/2020 1734 First Screen: Latricia Carrizales Pathologist: Mary Ann King MD Specimen: GIFT PACKER ThinPrep Vial Screening, Cervical/Vaginal 08/03/2020 12:50 PM CARTOGRAPHIC DRAFTER [facility] INTERPRETATION/ RESULT NEGATIVE FOR INTRAEPITHELIAL LESION OR MALIGNANCY (NIL) (none) 08/03/2020 12:50 PM CARTOGRAPHIC DRAFTER [facility] at [address]250 CARTOGRAPHIC DRAFTER OTHER NON-NEOPLASTIC FINDING(S) Reactive cellular changes associated with inflammation/repa ir 08/03/2020 12:50 PM CARTOGRAPHIC DRAFTER [facility] SPECIMEN ADEQUACY Satisfactory for evaluation Endocervical component present 08/03/2020 12:50 PM CARTOGRAPHIC DRAFTER [facility] HPV REQUEST HPV and PAP 08/03/2020 12:50 PM CARTOGRAPHIC DRAFTER [facility] Additional Information 08/03/2020 12:50 PM CARTOGRAPHIC DRAFTER [facility] Comment: Interpreted at [facility] - [address], [place] [address] Automated Review Successful 08/03/2020 12:50 PM CARTOGRAPHIC DRAFTER [facility] Comment:Specimen processed s uccessfully by automated global clinical leader device, Isabella ProductsPrep Imaging System, [employer] ANCILLARY TESTING GIFT PACKER HPV Ordered, Please see separate report 08/03/2020 12:50 PM CARTOGRAPHIC DRAFTER [facility] Note The pap test is a screening technique, not a diagnostic procedure. It is used primarily to screen for squamous cancers and precursor lesions. Published studies have shown that it is subject to both false negative and false positive results. The pap test should not be used as the sole means to diagnose or exclude pre-malignant and malignant lesions. 08/03/2020 12:50 PM CARTOGRAPHIC DRAFTER [facility] Other (Cervical/Vagina l) 07/21/2020 11:00 AM CARTOGRAPHIC DRAFTER 07/21/2020 5:34 PM CARTOGRAPHIC DRAFTER us Claudia Cruz MD PATHOLOGY/CYTOLOGY Final Result [facility] [address] [place] [address], [place] from Last 3 Months or Most Recently Relevant to Health Maintenance Insurance [place] [address] Care Teams Production Maintenance Mechanic Relationship Specialty Start Date End Date Claudia Cruz MD [address] [place] [address] PCP - General Family Practice 05/30/24
[2025-05-16 10:03] VITALS: BP 175/94; PULSE 123; RESP 28; TEMP 36.7; O2SAT 99; BMI 24.8
--- NOTE | 2025-05-16 10:20 | CRLHL7_ITS ---
For Patients: As a result of the Century Cures Act, medical imaging exams and procedure reports are released immediately into your electronic medical record. You may view this report before your referring provider. If you have questions, please contact your health care provider. INDICATION: Left flank pain. TECHNIQUE: CT abdomen and pelvis acquired without contrast. COMPARISON: CT chest 09/26/2024. FINDINGS: Lower chest: Unremarkable. Liver: Unremarkable. Spleen: Unremarkable. Pancreas: Unremarkable. Gallbladder and bile ducts: Cholecystectomy. No biliary ductal dilatation. Kidneys: No urolithiasis or hydronephrosis. Incidental 2 cm cyst in the lower pole of the right kidney. Bilateral unenhanced kidneys are otherwise unremarkable. Adrenal glands: Unremarkable. GI tract: No obstruction or focal inflammatory changes. Appendix not discretely identified. No inflammatory change in the expected region of the appendix. No free air or free fluid. Lymph nodes: No pathologic lymphadenopathy. Vascular structures: Atherosclerotic disease. No abdominal aortic aneurysm. Pelvic Organs: Unremarkable. Bones: No acute or suspicious osseous abnormality. IMPRESSION: No acute intra-abdominal or pelvic abnormality. Dictated by Aditya De La Torre MD @ 05/16/2025 11:40:08 AM Please note that all CT scans at this facility use dose modulation, iterative reconstruction, and/or weight-based dosing when appropriate to reduce radiation dose to as low as reasonably achievable. Dictated by: Aditya De La Torre MD @ 05/16/2025 11:40:16 (Electronically Signed)
--- NOTE | 2025-05-16 10:22 | ED_ITS ---
HPI - General Adult General Chief complaint: Flank Pain Stated complaint: Radiating back/side pain History of Present Illness HPI narrative: Patient is a 55-year-old woman who awoke with the abrupt onset of left flank pain 2:00 a.m. approximately 8 hours ago. She has had generalized anorexia but no vomiting. Pain is 10/10 and sharp. She has no hematuria. No other abdominal pain no radiation of pain. No cough no shortness of breath. Patient has no history of any kidney stones or similar pathology. Patient has taken Tylenol without improvement and is in today for further evaluation. Related Data Home Medications ?Medication ?Instructions ?Recorded ?Confirmed No Known Home Medications 05/16/2504/24 Allergies Allergy/AdvReac Type Severity Reaction Status Date / Time hydrocodone Allergy Mild Vomiting Verified 10/31/24 10:03 Review of Systems Status of ROS: Reports: 10 or more systems reviewed and unremarkable except as noted in History and below [facility] Medical History Trigger thumb of left hand ?M65.312 - Trigger thumb, left thumb (ICD-10) Hip pain, left ?M25.552 - Pain in left hip (ICD-10) Left facial pain ?R51.9 - Headache, unspecified (ICD-10) Plantar fasciitis of right foot ?M72.2 - Plantar fascial fibromatosis (ICD-10) Migraine with aura ?G43.109 - Migraine with aura, not intractable, without status migrainosus (ICD-10) History of essential hypertension ?Z86.79 - Personal history of other diseases of the circulatory system (ICD- 10) Surgical History Status post trigger finger release (08/21/23) ?Z98.890 - Other specified postprocedural states (ICD-10) Trigger finger, right middle finger (09/01/21) ?M65.331 - Trigger finger, right middle finger (ICD-10) S/p bilateral carpal tunnel release (2020) ?Z98.890 - Other specified postprocedural states (ICD-10) Status post laparoscopic cholecystectomy (2017) ?Z90.49 - Acquired absence of other specified parts of digestive tract (ICD- 10) History of pubovaginal sling (2010) ?Z96.0 - Presence of urogenital implants (ICD-10) History of bilateral ligation of fallopian tubes (2007) ?Z98.51 - Tubal ligation status (ICD-10) History of appendectomy (1990) ?Z90.49 - Acquired absence of other specified parts of digestive tract (ICD- 10) Family History Other Adopted person Social History Narrative: Exercise involving walking, [address] steps daily at work , 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 Non-smoker, quit age 25, 5 pack years Social drinker, 0-2 /month What is your current living situation?: I presently have a place to live Problems where you live: no known problems In the past 12 months, utilities in danger of being shut off: no In past 12 months, lack of transportation kept you from medical appts, meetings, work, or getting things needed for daily living: no In the past 12 mos, have been you worried that your food would run out before you had money to buy more?: never true In the past 12 mos, the food you bought just didn't last and you didn't have money to buy more?: never true Smoking Status: Former smoker What tobacco products do you use: cigarettes Smoking quit date/years: >15 years ago Do you use any of these nicotine containing products: None Second hand tobacco smoke exposure: No How often do you have a drink containing alcohol: 2-4 times a month How many standard drinks containing alcohol do you have on a typical day: 1 or 2 How often do you have six or more drinks on one occasion: Never AUDIT-C Alcohol total score: 2 Non-prescribed substance use: denies use How often does anyone, including family, friends and others, physically hurt you : never How often does anyone, including family, friends and others, insult or talk down to you: never How often does anyone, including family, friends and others, threaten you with harm: never How often does anyone, including family, friends and others, scream or curse at you: never service: No Exam Narrative: Exam Narrative: EXAM GENERAL: Patient appears comfortable and well. EYES: No scleral icterus. LYMPH: No supraclavicular or cervical lymphadenopathy. SKIN: Visible skin seen during exam normal or with benign process only. EXT: No dependent lower extremity pedal edema. HEART: Regular rate and rhythm with no murmurs, rubs, or gallops. LUNGS: Clear to auscultation bilaterally with no crackles or wheezes. ABD: Soft, non tender, non distended. PSYCH: Good eye contact, speech is not pressured. Const: Vital Signs, click to edit/add: Vital Signs - 24 hr 05/16/25 10:03 05/16/25 10:59 Temperature 98.1 F Pulse Rate [Pulse Oximeter] 123 H 90 Respiratory Rate 28 H 20 Blood Pressure [Le ft Upper Arm] 175/94 H 153/94 H Pulse Oximetry 99 99 Oxygen Delivery Me thod Room Air Room Air Course Course ED Course: Patient presents with severe left-sided crampy abdominal pain. With suspicious that she had a kidney stone or similar. CT is negative. UA shows no blood. D- dimer negative troponin negative. I did give her 30 mg of Toradol and 0.5 mg of Dilaudid with Zofran. She is now feeling much better. Workup to this point is unremarkable. Differential diagnosis would include but not limited to musculoskeletal strain colitis pancreatitis kidney stone UTI. I believe based on the workup the patient should be treated as a musculoskeletal strain and will rotate Tylenol Motrin. Did give 4 tablets of Chandler 1-2 every 4-6 as needed after follow-up with her primary physician as needed. Vital Signs Vital signs: Initial Vital Signs Temperature 98.1 F 05/16/25 10:03 Temperature Source Oral 05/16/25 10:03 Pulse Rate 123 H 05/16/25 10:03 Respiratory Rate 28 H 05/16/25 10:03 Blood Pressure 175/94 H 05/16/25 10:03 Blood Pressure Mean 121 H 05/16/25 10:03 Blood Pressure Position Sitting 05/16/25 10:03 Pulse Oximetry 99 05/16/25 10:03 Oxygen Delivery Method Room Air 05/16/25 10:03 Vital Signs Temperature 98.1 F 05/16/25 10:03 Pulse Rate 123 H 05/16/25 10:03 Respiratory Rate 28 H 05/16/25 10:03 Blood Pressure 175/94 H 05/16/25 10:03 Pulse Oximetry 99 05/16/25 10:03 Oxygen Delivery Method Room Air 05/16/25 10:03 Temperature 98.1 F 05/16/25 10:03 Pulse Rate 90 05/16/25 10:59 Respiratory Rate 20 05/16/25 10:59 Blood Pressure 153/94 H 05/16/25 10:59 Pulse Oximetry 99 05/16/25 10:59 Oxygen Delivery Method Room Air 05/16/25 10:59 Medications Administered Medications: Discontinued Medications Generic Name Dose Route Start Last Admin Trade Name Freq PRN Reason Stop Dose Admin Hydromorphone HCl 0.5 mg 05/16/25 10:48 05/16/25 10:57 Hydromorphone 0.5 Mg/0.5 Ml Inj IVP 05/16/25 10:49 0.5 mg ONCE ONE Administration Ketorolac Tromethamine 30 mg 05/16/25 10:20 05/16/25 10:42 Ketorolac 30 Mg/Ml Inj IVP 05/16/25 10:21 30 mg ONCE ONE Administration Ondansetron HCl 4 mg 05/16/25 10:20 05/16/25 10:42 Ondansetron 2 Mg/Ml Inj IVP 05/16/25 10:21 4 mg ONCE ONE Administration Medical Decision Making Lab Data Labs: Lab Results 05/16/25 05/16/25 05/16/25 Range/Units 10:15 10:27 11:25 WBC 7.24 (4.50-11.00) K/uL RBC 5.02 (4.00-5.20) m/uL Hgb 14.8 (12.0-16.0) gm/dL Hct 42.1 (33.0-51.0) % MCV 84 (80-100) fL MCH 30 (26-34) pg MCHC 35 (32-36) gm/dL RDW Coeff of [place] 12.3 (11.5-15.5) % Plt Count 253 (140-440) K/uL Neut % (Auto) 74.3 H (42.0-72.0) % Lymph % (Auto) 14.9 L (20-44) % [place] % (Auto) 9.4 (0.0-11.0) % Eos % (Auto) 0.7 (0.0-7.0) % Baso % (Auto) 0.7 (0.0-3.0) % Neut # (Auto) 5.40 (1.7-7.0) K/uL Lymph # (Auto) 1.10 (0.90-2.90) K/uL [place] # (Auto) 0.70 (0.00-0.90) K/UL Eos # (Auto) 0.05 (0.00-0.50) K/uL Baso # (Auto) 0.05 (0.00-0.30) K/uL Abs Immat Gran (auto) 0.00 (0.00-0.30) K/uL Imm/Tot Granulo (auto) 0.0 % D-Dimer Quant (PE/DVT) (0.00-0.50) ug/ml Sodium 132 L (135-149) mmol/L Potassium 4.0 (3.6-5.1) mmol/L Chloride 98 (96-114) mmol/L Carbon Dioxide 24 (20-32) mmol/L Anion Gap 10 (7-15) mEq/L BUN 9 (7-30) mg/dL Creatinine 0.7 (0.5-1.5) mg/dL Estimated Creat Clear 75.12 Estimated GFR 102 ml/min Glucose 128 H (60-115) mg/dL Calcium 9.4 (8.4-10.6) mg/dL Total Bilirubin 0.9 (0.1-1.5) mg/dL AST 34 (12-35) U/L ALT 20 (4-35) U/L Alkaline Phosphatase 130 (40-150) U/L Total Protein 8.6 H (6.0-8.3) g/dL Albumin 4.8 (3.3-5.0) g/dL Lipase 135 (23-300) U/L Urine Color Yellow (Yellow) Urine Appearance Clear (Clear) Urine pH 8.5 (5.0-8.5) Ur Specific [place] 1.020 (1.000-1.030) Urine Protein Negative (Negative) Urine Glucose (UA) Negative (Negative) Urine Ketones 2+ A (Negative) Urine Blood Negative (Negative) Urine Nitrite Negative (Negative) Urine Bilirubin Negative (Negative) Urine Urobilinogen 0.2 (0.2-1.0) Ur Leukocyte Esterase Negative (Negative) POC Troponin I 0.00 L (0.01-0.04) ng/ml 05/16/25 Range/Units 11:46 WBC (4.50-11.00) K/uL RBC (4.00-5.20) m/uL Hgb (12.0-16.0) gm/dL Hct (33.0-51.0) % MCV (80-100) fL MCH (26-34) pg MCHC (32-36) gm/dL RDW Coeff of [place] (11.5-15.5) % Plt Count (140-440) K/uL Neut % (Auto) (42.0-72.0) % Lymph % (Auto) (20-44) % [place] % (Auto) (0.0-11.0) % Eos % (Auto) (0.0-7.0) % Baso % (Auto) (0.0-3.0) % Neut # (Auto) (1.7-7.0) K/uL Lymph # (Auto) (0.90-2.90) K/uL [place] # (Auto) (0.00-0.90) K/UL Eos # (Auto) (0.00-0.50) K/uL Baso # (Auto) (0.00-0.30) K/uL Abs Immat Gran (auto) (0.00-0.30) K/uL Imm/Tot Granulo (auto) % D-Dimer Quant (PE/DVT) 0.35 (0.00-0.50) ug/ml Sodium (135-149) mmol/L Potassium (3.6-5.1) mmol/L Chloride (96-114) mmol/L Carbon Dioxide (20-32) mmol/L Anion Gap (7-15) mEq/L BUN (7-30) mg/dL Creatinine (0.5-1.5) mg/dL Estimated Creat Clear Estimated GFR ml/min Glucose (60-115) mg/dL Calcium (8.4-10.6) mg/dL Total Bilirubin (0.1-1.5) mg/dL AST (12-35) U/L ALT (4-35) U/L Alkaline Phosphatase (40-150) U/L Total Protein (6.0-8.3) g/dL Albumin (3.3-5.0) g/dL Lipase (23-300) U/L Urine Color (Yellow) Urine Appearance (Clear) Urine pH (5.0-8.5) Ur Specific [place] (1.000-1.030) Urine Protein (Negative) Urine Glucose (UA) (Negative) Urine Ketones (Negative) Urine Blood (Negative) Urine Nitrite (Negative) Urine Bilirubin (Negative) Urine Urobilinogen (0.2-1.0) Ur Leukocyte Esterase (Negative) POC Troponin I (0.01-0.04) ng/ml Discharge Plan Discharge Clinical Impression: Flank pain Patient Disposition: Home, Self-Care Condition: Stable Instructions: Acute Abdominal Pain (ED) Additional Instructions: Tylenol Motrin Ice [place] for breakthrough pain Follow-up with your doctor next week. Activity Level: No Restrictions Discharge Diet: Regular Prescriptions: No Action No Known Home Medications Follow Up/Referrals: Claudia Cruz MD [Primary Care Provider, Family Practice] Stand Alone Forms: [employer] Info Instructions
[2025-05-16 10:32] LABS: Hematocrit* 42.1 % (33.0-51.0); Hemoglobin* 14.8 gm/dL (12.0-16.0); Immature Granulocytes Abs Auto 0.00 K/uL (0.00-0.30); Immature Granulocytes Pct Auto 0.0 %; Mean Corpuscular HGB Conc 35 gm/dL (32-36); Mean Corpuscular Hemoglobin 30 pg (26-34); Mean Corpuscular Volume 84 fL (80-100); RDW Coefficient of Variation % 12.3 % (11.5-15.5); Red Blood Count* 5.02 m/uL (4.00-5.20); White Blood Count* 7.24 K/uL (4.50-11.00)
[2025-05-16 10:32] LABS: Troponin, Point-of-Care* 0.00 ng/ml (0.01-0.04)
[2025-05-16 10:33] LABS: Lymphocytes Absolute Auto 1.10 K/uL (0.90-2.90); Slide Review Reflex No
[2025-05-16] MEDS: ONDANSETRON 2 MG/ML inj 4 MG IVP (10:42)
[2025-05-16 10:48] LABS: Albumin* 4.8 g/dL (3.3-5.0); Chloride* 98 mmol/L (96-114); Potassium* 4.0 mmol/L (3.6-5.1); Sodium* 132 mmol/L (135-149)
[2025-05-16 10:51] LABS: Alanine Aminotransferase* 20 U/L (4-35); Alkaline Phosphatase* 130 U/L (40-150); Anion Gap 10 mEq/L (7-15); Aspartate Amino Transferase* 34 U/L (12-35); Bilirubin Total* 0.9 mg/dL (0.1-1.5); Blood Urea Nitrogen* 9 mg/dL (7-30); Calcium* 9.4 mg/dL (8.4-10.6); Carbon Dioxide* 24 mmol/L (20-32); Creatinine* 0.7 mg/dL (0.5-1.5); Est. Creatinine Clearance* 75.12; Estimated Glomerular Filt Rate 102 ml/min; Glucose* 128 mg/dL (60-115); Total Protein* 8.6 g/dL (6.0-8.3)
[2025-05-16 10:59] VITALS: BP 153/94; PULSE 90; RESP 20; O2SAT 99
[2025-05-16 11:31] LABS: Appearance Urine Clear (Clear)
[2025-05-16 11:59] LABS: D Dimer Quantitative* 0.35 ug/ml (0.00-0.50)
[2025-05-16 12:45] VITALS: BP 160/80; PULSE 88; RESP 20; TEMP 36.7; O2SAT 99
== END 2025-05-16 13:01 | disposition home or self-care (01) ==
PROVIDERS: Emergency Provider Internal Medicine; PCP Family Medicine
DX: R10.A2 Flank pain, left side (principal); Z87.891 Personal history of nicotine dependence
CPT/HCPCS: 36415; 74176; 80053; 81003; 83690; 84484; 85025; 85379; 93325; 96374; 96375; 99283; 99284; 99285; J1171; J1885; J2405